=== PATIENT | female | born 1935 | race Caucasian/White ===

== ENCOUNTER 2017-07-11 11:38 | Emergency (ER) | payer MEDICARE, OTHER ==
[2017-07-11 12:21] LABS: HEMATOCRIT 39.6 % (35.0-47.0); HEMOGLOBIN 13.7 gm/dl (11.6-16.0); MEAN CELL VOLUME 87.2 fl (81-97); MEAN CORPUSCULAR HEMOGLOBIN 30.2 pg (27-33); MEAN CORPUSCULAR HGB CONC 34.6 g/dl (32-36); MEAN PLATELET VOLUME 10.8 fl (7.4-10.4); PLATELET COUNT 206 K/uL (130-400); RED BLOOD COUNT 4.54 M/uL (3.80-5.40); WHITE BLOOD COUNT W/O DIFF 7.9 K/uL (4.2-12.2)
[2017-07-11 12:29] LABS: PLATELET ESTIMATE NORMAL (NORMAL)
--- NOTE | 2017-07-11 12:31 | Emergency Department Record ---
History of Present Illness - General Chief Complaint: Fall Injury Stated Complaint: FELL RT SHOULDER & NOSE INJURY Time Seen by Provider: 07/11/17 12:03 Source: Patient Mode of Arrival: Ambulatory Limitations: No limitations - History of Present Illness Initial Comments: pt slipped in the bathroom and hit her face in the shower track and injured her r shoulder and r elbow. she lacerated her nose. she had no loc. she is on jihan JUSTICE Complaint: Fall -: Minutes(s) Fall From: Standing When Fall Occurred: Just prior to arrival Fall Witnessed: No Place Fall Occurred: Home Loss of Consciousness: None Prolonged Down Time?: No Symptoms Prior to Fall: None Location: Face Location - Extremities: Right: Shoulder, Elbow Severity: Mild Quality: Aching - Long Bottom Coma Scale Eye Response: (4) Open spontaneously Motor Response: (6) Obeys commands Verbal Response: (5) Oriented Tara Total: 15 - Related Data Home Medications Medication Instructions Recorded Confirmed Last Taken Insulin Glargine,Hum.rec.anlog 12 unit SQ QHS 07/11/17 07/11/17 07/10/17 [Lantus] Linagliptin [Tradjenta] 5 mg PO DAILY 07/11/17 07/11/17 Unknown Allergies Allergy/AdvReac Type Severity Reaction Status Date / Time Penicillins Allergy HIVES Verified 07/11/17 11:53 Review of Systems Reviewed: No additional complaints except as noted below Constitutional: Reports: As per HPI. Denies: Chills, Fever, Malaise, Night sweats, Weakness, Weight change Eyes: Reports: As per HPI. Denies: Eye discharge, Eye pain, Photophobia, Vision change ENT: Reports: As per HPI. Denies: Congestion, Dental pain, Ear pain, Epistaxis , Hearing loss, Throat pain Respiratory: Reports: As per HPI. Denies: Cough, Dyspnea, Hemoptysis, Stridor, Wheezes Cardiovascular: Reports: As per HPI. Denies: Arrhythmia, Chest pain, Dyspnea on exertion, Edema, Murmurs, Orthopnea, Palpitations, Paroxysmal nocturnal dyspnea, Rheumatic Fever, Syncope Endocrine: Reports: As per HPI. Denies: Fatigue, Heat or cold intolerance, Polydipsia, Polyuria Gastrointestinal: Reports: As per HPI. Denies: Abdominal pain, Constipation, Diarrhea, Hematemesis, Hematochezia, Melena, Nausea, Vomiting Genitourinary: Reports: As per HPI. Denies: Abnormal menses, Discharge, Dyspareunia, Dysuria, Frequency, Hematuria, Incontinence, Retention, Urgency Musculoskeletal: Reports: As per HPI. Denies: Arthralgia, Back pain, Gout, Joint swelling, Myalgia, Neck pain Skin: Reports: As per HPI. Denies: Bruising, Change in color, Change in hair/ nails, Lesions, Pruritus, Rash Neurological: Reports: As per HPI. Denies: Abnormal gait, Confusion, Headache, Numbness, Paresthesias, Seizure, Tingling, Tremors, Vertigo, Weakness Psychiatric: Reports: As per HPI. Denies: Anxiety, Auditory hallucinations, Depression, Homicidal thoughts, Suicidal thoughts, Visual hallucinations Hematological/Lymphatic: Reports: As per HPI. Denies: Anemia, Blood Clots, Easy bleeding, Easy bruising, Swollen glands Past Medical History - SOCIAL HISTORY Smoking Status: Never smoker Alcohol Use: None Drug Use: None - RESPIRATORY Hx Respiratory Disorders: No - CARDIOVASCULAR Hx Cardio Disorders: Yes Hx Hypertension: Yes Hx Pacemaker/Defib: Yes Comment:: high cholesterol - NEURO Hx Neuro Disorders: Yes Hx Neuropathy: Yes - GI Hx GI Disorders: No - Hx Genitourinary Disorders: No - ENDOCRINE Hx Endocrine Disorders: Yes Hx Diabetes: Yes Hx Thyroid Disease: Yes - MUSCULOSKELETAL Hx Musculoskeletal Disorders: Yes Hx Gout: Yes - PSYCH Hx Psych Problems: No - HEMATOLOGY/ONCOLOGY Hx Hematology/Oncology Disorders: Yes Hx Cancer: Yes (skin basal cell) Family Medical History Any Significant Family History?: No Physical Exam - General General Appearance: Alert, Oriented x3, Cooperative, Mild distress - Head Head exam: Normal inspection Head exam detail: Contusion, Laceration Image of Face/Head: 1 - laceration w tenderness 2 - swelling and ecchymosis - Eye Eye exam: Normal appearance, PERRL, EOMI Pupils: Normal accommodation - ENT ENT exam: Normal exam, Mucous membranes moist, Normal external ear exam, Normal orophraynx Ear exam: Normal external inspection. negative: External canal tenderness Nasal Exam: Normal inspection, Dried blood. negative: Discharge, Sinus tenderness Mouth exam: Normal external inspection, Tongue normal Teeth exam: Normal inspection. negative: Dental caries Throat exam: Normal inspection. negative: Tonsillar erythema, Tonsillar exudate - Neck Neck exam: Normal inspection, Full ROM. negative: Tenderness - Respiratory Respiratory exam: Normal lung sounds bilaterally. negative: Respiratory distress - Cardiovascular Cardiovascular Exam: Regular rate, Normal rhythm, Normal heart sounds - GI/Abdominal GI/Abdominal exam: Soft, Normal bowel sounds. negative: Tenderness - Rectal Rectal exam: Deferred - exam: Deferred - Extremities Extremities exam: Normal capillary refill, Tenderness. negative: Full ROM Image of Full Body: 1 - tender 2 - tender 3 - detail above - Back Back exam: Reports: Normal inspection, Full ROM. Denies: Muscle spasm, Rash noted, Tenderness - Neurological Neurological exam: Alert, CN II-XII intact, Normal gait, Oriented X3 - Psychiatric Psychiatric exam: Normal affect, Normal mood - Skin Skin exam: Dry, Intact, Normal color, Warm Medical Decision Making - Lab Data Result diagrams: 07/11/17 12:00 Lab Results 07/11/17 Range/Units 12:00 WBC 7.9 (4.2-12.2) K/uL RBC 4.54 (3.80-5.40) M/uL Hgb 13.7 (11.6-16.0) gm/dl Hct 39.6 (35.0-47.0) % MCV 87.2 (81-97) fl MCH 30.2 (27-33) pg MCHC 34.6 (32-36) g/dl RDW 13.0 (11.5-14.5) % Plt Count 206 (130-400) K/uL MPV 10.8 H (7.4-10.4) fl Eosinophils % Not Reportable Basophils % Not Reportable Disposition Disposition: Discharge Clinical Impression: Multiple contusions Laceration of nose Qualifiers: Encounter type: initial encounter Qualified Code(s): S01.21XA - Laceration without foreign body of nose, initial encounter Right shoulder strain Qualifiers: Encounter type: initial encounter Qualified Code(s): S46.911A - Strain of unspecified muscle, fascia and tendon at shoulder and upper arm level, right arm , initial encounter Head injury Qualifiers: Encounter type: initial encounter Qualified Code(s): S09.90XA - Unspecified injury of head, initial encounter Disposition: Home, Self-Care Condition: (1) Good Instructions: Care For Your Stitches (ED), Fall Prevention for Older Adults (ED ), Head Injury (ED), Shoulder Sprain (ED), Nasal Contusion (ED), Facial Contusion (ED) Additional Instructions: follow up with family doctor. return sooner if worse. ice to nose. stitches out in 7 days Forms: Patient Portal Access Quality - Quality Measures Quality Measures: N/A - Blood Pressure Screening Does Patient Have Any of the Following: No Blood Pressure Classification: Pre-Hypertensive BP Reading Systolic Measurement: 125 Diastolic Measurement: 89 Screening for High Blood Pressure: < Pre-Hypertensive BP, F/U Documented > [ G8950] Pre-Hypertensive Follow-up Interventions: Follow-up with rescreen every year. Laceration - Head - Time Out Informed consent:: Informed consent obtained Confirmed first & last name, , procedure, correct site?: Yes - Location Location of laceration:: Medial Laceration located on:: Nose Length of laceration:: 2 Length of laceration:: cm - Clean and Prep Laceration cleaning method:: Cleansed Laceration cleaning agent:: Normal Saline - Topical Anesthetic Lidocaine dose:: 1 mL Lidocaine used:: 1% - Medication Medicated for procedure?: No - Procedural Detail Tissue detail:: None Undermining was preformed?: No Stent applied?: No Elo applied?: No (4 simple interupted sutures w 6.0 ethilon) Retention suture(s) applied?: No
--- NOTE | 2017-07-13 06:00 | CT SCAN REPORT ---
DATE: 07/11/2017 at 1302. EXAM: CT OF THE HEAD WITHOUT CONTRAST. HISTORY: Fell and hit nose and right shoulder. Patient on anticoagulation therapy. TECHNIQUE: Routine noncontrast CT examination of the head is performed. COMPARISON: None. FINDINGS: There is mild dilatation of the subarachnoid spaces consistent with generalized atrophy. The ventricles are not enlarged. Mild periventricular and subcortical white matter lucencies are scattered in each cerebral hemisphere. These are nonspecific but likely areas of chronic small-vessel ischemia. No other area of abnormally increased or decreased attenuation is noted throughout the brain substance. No abnormal extra-axial fluid collection is seen. No skull fracture is identified. The visualized paranasal sinuses and mastoid air cells are clear. Postcataract surgery changes are noted bilaterally. The orbits as visualized are otherwise unremarkable. No cephalohematoma visualized. IMPRESSION: 1. NO CT EVIDENCE OF AN ACUTE INTRACRANIAL ABNORMALITY NOR SKULL FRACTURE. 2. GENERALIZED ATROPHY. 3. MILD WHITE MATTER LUCENCIES IN EACH CEREBRAL HEMISPHERE ARE NONSPECIFIC BUT LIKELY AREAS OF CHRONIC SMALL-VESSEL ISCHEMIA. JOB NUMBER: [id number] [facility]
--- NOTE | 2017-07-13 06:03 | RADIOLOGY REPORT ---
DATE: 07/11/2017 at 1327. EXAM: RIGHT ELBOW, COMPLETE. HISTORY: Pain post fall. TECHNIQUE: Four views of the right elbow. COMPARISON: None. ENCOUNTER: Initial. FINDINGS: There is normal bone mineralization. No fracture, dislocation, or destructive bone lesion is seen. There are mild degenerative changes of the medial compartment. Mild soft tissue swelling is noted in the posteromedial forearm. No anterior nor posterior fat pad sign is seen. IMPRESSION: 1. NO ACUTE FRACTURE NOR DISLOCATION. 2. MILD DEGENERATIVE CHANGES OF THE MEDIAL COMPARTMENT. 3. MILD SOFT TISSUE SWELLING. JOB NUMBER: [id number] [facility]
--- NOTE | 2017-07-13 06:10 | CT SCAN REPORT ---
DATE: 07/11/2017 at 1305. EXAM: CT OF THE FACIAL BONES WITHOUT CONTRAST. HISTORY: Fall with trauma to right shoulder and nose. Nasal laceration. TECHNIQUE: Thin-collimation helical CT examination of the facial bones is performed in the axial plane without intravenous contrast. Coronal and sagittal reformatted images are generated and reviewed. FINDINGS: There is normal bone mineralization. No acute facial bone fracture is demonstrated. There is some mild soft tissue swelling at the level of the nasal bridge, slightly asymmetric to the right. Mild right infraorbital soft tissue swelling is also noted. The paranasal sinuses are well developed and well aerated. Postcataract surgery changes are noted bilaterally. The ocular globes are intact. The retrobulbar fat is clear. The optic nerves and extraocular muscles are symmetric and normal in appearance. The nasopharynx and oropharynx are unremarkable. The visualized submandibular glands and parotid glands are normal in appearance. IMPRESSION: 1. NO CT EVIDENCE OF ACUTE FACIAL BONE FRACTURE. 2. MILD SOFT TISSUE SWELLING INVOLVING THE NOSE ASYMMETRIC TO THE RIGHT WELL IN THE RIGHT INFRAORBITAL SOFT TISSUES. JOB [facility]BER: [id number] [facility]
--- NOTE | 2017-07-13 06:24 | CT SCAN REPORT ---
DATE: 07/11/2017 at 1258. EXAM: CT OF THE CERVICAL SPINE WITHOUT CONTRAST. HISTORY: Fell today and hit nose and right shoulder. TECHNIQUE: Thin-collimation helical CT examination of the cervical spine is performed in the axial plane without intravenous contrast. Coronal and sagittal reformatted images are generated and reviewed. COMPARISON: None. FINDINGS: There is diffuse osteopenia mildly limiting evaluation. There is straightening of the normal cervical lordosis with slight reversal at the C5-C6 level. There is minimal anterolisthesis of C2 on C3, C3 on C4, and C4 on C5 as well as minimal anterolisthesis of C7 on T1. The vertebral bodies are otherwise normal in alignment and height. No acute fracture, destructive bone lesion, or prevertebral soft tissue swelling is seen. Moderate hypertrophic degenerative changes of the atlantodental joint are present. Multilevel degenerative disc/degenerative endplate changes are present, most pronounced at the C5-C6 and C6-C7 levels where they are moderate in degree. There is a small area of lucency in the inferior aspect of the C6 vertebral body. This measures 4.0 mm in diameter. It is nonspecific, though likely an area of focal marrow fat rather than a true lytic lesion. A chronic-appearing Schmorl's node involves the inferior endplate of C7. There is a small right paracentral disc spur complex superimposed on disc bulging at the C5-C6 level likely causing borderline to mild central canal stenosis. No other central canal stenosis. Multilevel bilateral neuroforaminal narrowing is present, mild in degree secondary to uncovertebral joint and facet joint spurring. Hypertrophic facet degenerative changes are identified most pronounced on the left at the upper levels where the changes are moderate to severe. No cervical mass nor adenopathy is seen. Bi-apical lung scarring is present. IMPRESSION: 1. DIFFUSE OSTEOPENIA LIMITS EVALUATION. 2. NO CONVINCING ACUTE FRACTURE, SUSPICIOUS SUBLUXATION, OR PREVERTEBRAL SOFT TISSUE SWELLING. 3. MULTILEVEL DEGENERATIVE CHANGES, DETAILED ABOVE. MULTILEVEL MINOR ANTEROLISTHESIS LIKELY RELATING TO DEGENERATIVE DISC AND FACET ARTHROPATHY. JOB NUMBER: [id number] [facility]
--- NOTE | 2017-07-13 06:29 | RADIOLOGY REPORT ---
DATE: 07/11/2017 at 1316. EXAM: RIGHT SHOULDER, COMPLETE. HISTORY: Fall with trauma to right shoulder. TECHNIQUE: Three views of the right shoulder. COMPARISON: None. FINDINGS: Diffuse osteopenia limits evaluation. No definite acute osseus fracture nor dislocation is seen. Moderate hypertrophic degenerative changes of the acromioclavicular and glenohumeral joints suggested. Chronic-appearing ossific density projects in the expected region of the superior rotator cuff likely relating to calcific tendinitis. IMPRESSION: 1. DIFFUSE OSTEOPENIA LIMITS EVALUATION. NO CONVINCING ACUTE FRACTURE NOR DISLOCATION. 2. MODERATE DEGENERATIVE CHANGES. 3. WELL-CIRCUMSCRIBED, CHRONIC-APPEARING CALCIFIC DENSITY PROJECTING AT THE EXPECTED LEVEL OF THE SUPERIOR ROTATOR CUFF MEASURING 4.0 X 14 MM. CALCIFIC TENDINITIS IS THE MOST LIKELY ETIOLOGY. JOB NUMBER: [id number] [facility]
== END 2017-07-11 15:34 | disposition home or self-care (01) ==
LOC: ER 11:38
DX: S01.21XA Laceration without foreign body of nose, initial encounter (principal); S00.83XA Contusion of other part of head, initial encounter; S46.911A Strain of unspecified muscle, fascia and tendon at shoulder and upper arm level, right arm, initial encounter; S09.90XA Unspecified injury of head, initial encounter; M25.521 Pain in right elbow; M50.30 Other cervical disc degeneration, unspecified cervical region; E11.9 Type 2 diabetes mellitus without complications; I10 Essential (primary) hypertension; Z79.4 Long term (current) use of insulin; Z79.01 Long term (current) use of anticoagulants; W18.2XXA Fall in (into) shower or empty bathtub, initial encounter; Y93.F1 Activity, caregiving, bathing; Y92.002 Bathroom of unspecified non-institutional (private) residence as the place of occurrence of the external cause
CPT/HCPCS: 12011; 70450; 70486; 72125; 85027; 99284

== ENCOUNTER 2017-07-18 11:40 | Emergency (ER) | payer MEDICARE, OTHER ==
--- NOTE | 2017-07-18 12:02 | Emergency Department Record ---
History of Present Illness - General Chief Complaint: Suture removal Stated Complaint: STITCHES REMOVED Time Seen by Provider: 07/18/17 11:56 Source: Patient Mode of arrival: Ambulatory Limitations: No limitations - History of Present Illness Initial Comments: The patient is doing very well. She is here for suture removal. Complaint: Suture/staple removal Onset/Timin -: Days(s) Initial Visit For: Laceration Returns Today for: Staple/stitch removal Symptoms Since Prior Visit: No new symptoms Associated Symptoms: None - Related Data Allergies Allergy/AdvReac Type Severity Reaction Status Date / Time Penicillins Allergy HIVES Verified 07/11/17 11:53 Travel Screening - Travel/Exposure Within Last 30 Days Have you traveled within the last 30 days?: No - Travel/Exposure Within Last Year Have you traveled outside the [place] in the last year?: No - Additonal Travel Details Have you been exposed to anyone with a communicable illness?: No - Travel Symptoms Symptom Screening: None Past Medical History - SOCIAL HISTORY Smoking Status: Never smoker Alcohol Use: None Drug Use: None - RESPIRATORY Hx Respiratory Disorders: No - CARDIOVASCULAR Hx Cardio Disorders: Yes Hx Hypertension: Yes Hx Pacemaker/Defib: Yes Comment:: high cholesterol - NEURO Hx Neuro Disorders: Yes Hx Neuropathy: Yes - GI Hx GI Disorders: No - Hx Genitourinary Disorders: No - ENDOCRINE Hx Endocrine Disorders: Yes Hx Diabetes: Yes Hx Thyroid Disease: Yes - MUSCULOSKELETAL Hx Musculoskeletal Disorders: Yes Hx Gout: Yes - PSYCH Hx Psych Problems: No - HEMATOLOGY/ONCOLOGY Hx Hematology/Oncology Disorders: Yes Hx Cancer: Yes (skin basal cell) Family Medical History Any Significant Family History?: No Physical Exam - General General Appearance: Alert, Cooperative, No acute distress - Head Head exam: Atraumatic, Normocephalic - Eye Eye exam: Normal appearance, PERRL - ENT ENT exam: Normal exam (The sutures were removed with no difficulty.) Course Vital Signs 07/18/17 11:47 Temperature 97.9 F Pulse Rate 76 Respiratory 16 Rate Blood Pressure 194/89 Pulse Ox 98 Disposition Disposition: Discharge Clinical Impression: Visit for suture removal Disposition: Home, Self-Care Condition: (2) Stable Instructions: Stitches Removal (ED) Additional Instructions: Return to the ER for any problems. Forms: Patient Portal Access Time of Disposition: 12:02 Quality - Quality Measures Quality Measures: N/A - Blood Pressure Screening View Details: Yes Does Patient Have Any of the Following: No Blood Pressure Classification: Pre-Hypertensive BP Reading Systolic Measurement: 194 Diastolic Measurement: 89 Screening for High Blood Pressure: < Pre-Hypertensive BP, F/U Documented > [ G8950] Pre-Hypertensive Follow-up Interventions: Referral to alternative/primary care provider.
== END 2017-07-18 12:09 | disposition home or self-care (01) ==
LOC: ER 11:40
DX: Z48.02 Encounter for removal of sutures (principal)

== ENCOUNTER 2019-09-18 09:36 | Observation (INO) | payer MEDICARE, OTHER ==
[2019-09-18 10:09] LABS: BASO % 0.1 % (0-6); EOS % 1.9 % (0-6); HEMATOCRIT 30.8 % (35.0-47.0); HEMOGLOBIN 9.5 gm/dl (11.6-16.0); LYMPH % 6.1 % (16-45); MEAN CELL VOLUME 96.3 fl (81-97); MEAN CORPUSCULAR HGB CONC 30.8 g/dl (32-36); MONO % 6.3 % (0-9); PLATELET COUNT 202 K/uL (130-400); RED CELL DISTRIBUTION WIDTH 13.6 % (11.5-14.5); WHITE BLOOD COUNT W/O DIFF 6.7 K/uL (4.2-12.2)
--- NOTE | 2019-09-18 10:09 | Emergency Department Record ---
History of Present Illness - General Chief Complaint: Chest Pain Stated Complaint: CHEST PAIN Time Seen by Provider: 09/18/19 09:46 Source: Patient Mode of Arrival: Ambulatory Limitations: No limitations - History of Present Illness Initial Comments: The patient is here due to a 3 day hx of CURTIS and palpitations after walking and exerting herself. She denies any Cp, pressure or any chest discomfort with the palpitations. She also has had mild leg swelling recently. The patient does have a cardiac hx and did have 2 stents placed about 9 months ago at [facility]. She also does have a pacemaker. MD Complaint: Other Onset/Timin -: Days(s) Onset: During exertion Consistency: Intermittent Worsens With: Exertion, Movement Treatments Prior to Arrival: None - Related Data Home Medications Medication Instructions Recorded Confirmed Last Taken Amlodipine Besylate [Norvasc] 10 mg PO DAILY 09/18/19 09/18/19 Unknown Atorvastatin Calcium [Lipitor] 40 mg PO DAILY 09/18/19 09/18/19 Unknown Carvedilol 25 mg PO DAILY 09/18/19 09/18/19 Unknown Cholecalciferol (Vitamin D3) 25 mcg PO DAILY 09/18/19 09/18/19 Unknown [Vitamin D3] Clopidogrel Bisulfate [Clopidogrel] 75 mg PO DAILY 09/18/19 09/18/19 Unknown Warfarin Sodium 2 mg PO DAILY 09/18/19 09/18/19 Unknown Warfarin Sodium [Coumadin] 1 mg PO DAILY 09/18/19 09/18/19 Unknown Allergies Allergy/AdvReac Type Severity Reaction Status Date / Time Penicillins Allergy HIVES Verified 07/11/17 11:53 Travel Screening - Travel/Exposure Within Last 30 Days Have you traveled within the last 30 days?: No Review of Systems Constitutional: Denies: Chills, Fever Eyes: Denies: Eye discharge ENT: Denies: Congestion Respiratory: Denies: Cough, Dyspnea Cardiovascular: Reports: Dyspnea on exertion. Denies: Chest pain Endocrine: Denies: Fatigue Gastrointestinal: Denies: Nausea Genitourinary: Denies: Dysuria Musculoskeletal: Denies: Arthralgia Past Medical History - SOCIAL HISTORY Smoking Status: Never smoker Alcohol Use: None Drug Use: None - RESPIRATORY Hx Respiratory Disorders: No - CARDIOVASCULAR Hx Cardio Disorders: Yes Hx Hypertension: Yes Hx Pacemaker/Defib: Yes Comment:: high cholesterol - NEURO Hx Neuro Disorders: Yes Hx Neuropathy: Yes - GI Hx GI Disorders: No - Hx Genitourinary Disorders: No - ENDOCRINE Hx Endocrine Disorders: Yes Hx Diabetes: Yes Hx Thyroid Disease: Yes - MUSCULOSKELETAL Hx Musculoskeletal Disorders: Yes Hx Gout: Yes - PSYCH Hx Psych Problems: No - HEMATOLOGY/ONCOLOGY Hx Hematology/Oncology Disorders: Yes Hx Cancer: Yes (skin basal cell) Hx Chemotherapy: No Hx Radiation Therapy: No Family Medical History Any Significant Family History?: No Physical Exam - General General Appearance: Alert, Oriented x3, Cooperative, No acute distress - Head Head exam: Atraumatic, Normocephalic, Normal inspection - Eye Eye exam: Normal appearance, PERRL - ENT Throat exam: Normal inspection. negative: Tonsillar erythema, Tonsillar exudate - Neck Neck exam: Normal inspection, Full ROM. negative: Tenderness - Respiratory Respiratory exam: Normal lung sounds bilaterally. negative: Respiratory distress - Cardiovascular Cardiovascular Exam: Regular rate, Normal rhythm, Normal heart sounds - GI/Abdominal GI/Abdominal exam: Soft, Normal bowel sounds. negative: Tenderness - Extremities Extremities exam: Normal inspection, Pedal edema (1+ bilaterally.) - Neurological Neurological exam: Alert. negative: Motor sensory deficit - Skin Skin exam: negative: Rash Course Vital Signs 09/18/19 09:37 Pulse Rate 81 Respiratory 20 Rate Blood Pressure 193/75 Pulse Ox 97 - Reevaluation(s) Reevaluation #1: The patient is doing OK at this time and denies any CP or SOB. Her O2 sats are running in the low 90's and she has not urinated yet from her IV Lasix. I did discuss the fact that the patient appears to be in mild to mod CHF and do believe she will need a short stay admission for diuresis. I then did discuss the case with Louise and she does accept the admission for Dr. Hilton. 09/18/19 11:22 Medical Decision Making - Data Complexity MDM Data: Labs Ordered and/or Reviewed, X-Ray Ordered and/or Reviewed, EKG Ordered and/or Reviewed - Lab Data Result diagrams: 09/18/19 09:50 09/18/19 09:50 - EKG Data -: EKG Interpreted by Me EKG: No Acute Changes (Neg for ischemia.) - Radiology Data Radiology results: Report reviewed (CXR: Mild to Mod CHF) Disposition Disposition: Admit Clinical Impression: CHF (congestive heart failure) Qualifiers: Heart failure type: unspecified Heart failure chronicity: unspecified Qualified Code(s): I50.9 - Heart failure, unspecified Disposition: Still a Patient at [facility] Decision to Admit: Admit from ER Decision to Admit Date: 09/18/19 Decision to Admit Time: 11:24 Accepting Physician: Lida Time Discussed w/Accepting Physician: 11:24 Condition: (2) Stable Forms: Patient Portal Access Time of Disposition: 11:24 Quality - Quality Measures Quality Measures: N/A - Blood Pressure Screening View Details: Yes Does Patient Have Any of the Following: Active Dx of HTN Blood Pressure Classification: Hypertensive Reading Systolic Measurement: 193 Diastolic Measurement: 75 Screening for High Blood Pressure: Patient Exclusion, Hx of HTN [G9744]
[2019-09-18 10:16] LABS: MEAN CORPUSCULAR HEMOGLOBIN 29.6 pg (27-33)
[2019-09-18 10:19] LABS: BLOOD UREA NITROGEN 19 mg/dL (8-23); CREATININE 1.2 mg/dL (0.5-0.9); EST GLOMERULAR FILTRATION RATE 45 mL/min
[2019-09-18 10:20] LABS: TOTAL PROTEIN 6.9 g/dL (6.6-8.7)
[2019-09-18 10:22] LABS: GLUCOSE,RANDOM 300 mg/dL (74-109); INR 2.2; PARTIAL THROMBOPLASTIN TIME 43.3 SECONDS (24.5-39.1); PROTHROMBIN TIME (PATIENT) 22.1 SECONDS (9.5-12.1)
[2019-09-18 10:24] LABS: ALT/SGPT 12 U/L (<33); AST/SGOT 15 U/L (10.0-35.0)
[2019-09-18 10:25] LABS: ALB/GLOB RATIO 1.5 (1.1-1.8); ALBUMIN 4.1 g/dL (4.0-5.0); ALKALINE PHOSPHATASE 76 U/L (35-104)
[2019-09-18 10:34] LABS: ANISOCYTOSIS 1+; PLATELET ESTIMATE NORMAL (NORMAL)
[2019-09-18] MEDS ORDERED: FUROSEMIDE IV 40MG/4ML VIAL IVP ONE (10:37)
--- NOTE | 2019-09-18 11:06 | RADIOLOGY REPORT ---
EXAMINATION: Two View Chest Radiographs EXAM DATE: 09/18/2019 10:38 AM TECHNIQUE: Frontal and lateral views INDICATION: M[place] COMPARISON: None ENCOUNTER: Not applicable FINDINGS: PA and lateral views of the chest show increased interstitial opacities throughout both lungs which a re nonspecific. There is a small right pleural effusion. The cardiac silhouette appears within normal limits. There is no focal lung consolidation or pneumothorax. A left-sided cardiac pacemaker is in p lace. IMPRESSION: 1. Increased interstitial opacities throughout both lungs, nonspecific with considerations including chronic interstitial lung disease and acute processes such as interstitial edema and atypical pneumon ia. 2. Small right pleural effusion. Dictated by: Emory Lau MD on 09/18/2019 11:04 AM. .
--- NOTE | 2019-09-18 13:08 | History & Physical ---
History of Present Illness - Date of Service Date of Service for History & Physical: 09/18/19 - History of Present Illness Admitting Diagnosis: CHF. Dyspnea on exertion History of Present Illness: 83 year old female patient presented to ED for evaluation of shortness of breath. Patient has noted increasing dyspnea on exertion since Wednesday night. Denies chest pain or palpitations with exertion. Has also noted increased bilateral lower extremity swelling. Patient reports being on lasix daily, however, after talking with the pharmacy, patient last filled the prescription in April. Patient denies fever, cough, chills, or urinary symptoms. 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 Patient had cardiac stents placed in January, with an ECHO and stress completed at that time with no abnormalities. Patient is also on coumadin for a-fib. Medical history also significant for insulin dependent diabetes, HTN, and PPM. PCP: Dr. Morales ED Course: CXR: chronic interstitial lung disease with possible interstitial edema and atypical pneumonia; small right pleural effusion EKG: sinus rhythm, rate 79 BNP 1364 Troponin <0.010 CBC, CMP unremarkable INR 2.2 09/18/19: Patient A&O x 4, sitting up on edge of bed. No respiratory distress noted, no concerns at this time. Will continue with gentle diuresis with Lasix. Travel Screening - Travel/Exposure Within Last 30 Days Have you traveled within the last 30 days?: No - Travel/Exposure Within Last Year Have you traveled outside the [place] in the last year?: No - Additonal Travel Details Have you been exposed to anyone with a communicable illness?: No - Travel Symptoms Symptom Screening: None Review of Systems Reviewed: No additional complaints except as noted below Constitutional: Denies: Chills, Fever Eyes: Denies: Eye discharge ENT: Denies: Congestion Respiratory: Denies: Cough, Dyspnea Cardiovascular: Reports: Dyspnea on exertion, Edema (BLE). Denies: Chest pain Endocrine: Denies: Fatigue Gastrointestinal: Denies: Nausea Genitourinary: Denies: Dysuria Musculoskeletal: Denies: Arthralgia Past Medical History - SOCIAL HISTORY Smoking Status: Never smoker Alcohol Use: None Drug Use: None - RESPIRATORY Hx Respiratory Disorders: No - CARDIOVASCULAR Hx Cardio Disorders: Yes Hx Hypertension: Yes Hx Pacemaker/Defib: Yes Comment:: high cholesterol - NEURO Hx Neuro Disorders: Yes Hx Neuropathy: Yes - GI Hx GI Disorders: No - Hx Genitourinary Disorders: No - ENDOCRINE Hx Endocrine Disorders: Yes Hx Diabetes: Yes Hx Thyroid Disease: Yes - MUSCULOSKELETAL Hx Musculoskeletal Disorders: Yes Hx Gout: Yes - PSYCH Hx Psych Problems: No - HEMATOLOGY/ONCOLOGY Hx Hematology/Oncology Disorders: Yes Hx Cancer: Yes (skin basal cell) Hx Chemotherapy: No Hx Radiation Therapy: No Family Medical History Any Significant Family History?: No H&P Meds/Allergies - Allergies Allergies: Allergies Allergy/AdvReac Type Severity Reaction Status Date / Time Penicillins Allergy HIVES Verified 07/11/17 11:53 - Home Medications Home Medications Medication Instructions Recorded Confirmed Last Taken Amlodipine Besylate [Norvasc] 10 mg PO DAILY 09/18/19 09/18/19 Unknown Atorvastatin Calcium [Lipitor] 40 mg PO DAILY 09/18/19 09/18/19 Unknown Carvedilol 25 mg PO DAILY 09/18/19 09/18/19 Unknown Cholecalciferol (Vitamin D3) 25 mcg PO DAILY 09/18/19 09/18/19 Unknown [Vitamin D3] Clopidogrel Bisulfate [Clopidogrel] 75 mg PO DAILY 09/18/19 09/18/19 Unknown Furosemide [Lasix] 20 tab PO DAILY 09/18/19 09/18/19 Unknown Insulin Degludec [Tresiba 36 unit SQ QHS 09/18/19 09/18/19 Unknown Flextouch U-100] Irbesartan [Avapro] 300 mg PO DAILY 09/18/19 09/18/19 09/18/19 300mg Warfarin Sodium 2 mg PO DAILY 09/18/19 09/18/19 Unknown Warfarin Sodium [Coumadin] 1 mg PO DAILY 09/18/19 09/18/19 Unknown Physical Exam - Vital Signs Vital Signs: Vital Signs - Last 24 Hrs Temp Pulse Pulse Resp BP BP Pulse Ox 09/18/19 10:55 64 20 145/55 93 L 09/18/19 10:07 98.1 F 09/18/19 09:37 81 20 193/75 97 - General General Appearance: Alert, Oriented x3, Cooperative, No acute distress Limitations: No limitations - Head Head exam: Atraumatic, Normocephalic, Normal inspection - Eye Eye exam: Normal appearance, PERRL - ENT ENT exam: Mucous membranes moist Throat exam: Normal inspection. negative: Tonsillar erythema, Tonsillar exudate - Neck Neck exam: Normal inspection, Full ROM. negative: Tenderness - Respiratory Respiratory exam: Normal lung sounds bilaterally. negative: Respiratory distress - Cardiovascular Cardiovascular Exam: Regular rate, Normal rhythm, Normal heart sounds Peripheral Pulses: 2+: Radial (R), Radial (L), Dorsalis Pedis (R), Dorsalis Pedis (L) - GI/Abdominal GI/Abdominal exam: Soft, Normal bowel sounds. negative: Tenderness - Rectal Rectal exam: Deferred - exam: Deferred - Extremities Extremities exam: Normal inspection, Pedal edema (1+ bilaterally.) - Neurological Neurological exam: Alert, Normal gait, Oriented X3. negative: Motor sensory deficit - Psychiatric Psychiatric exam: Normal affect, Normal mood - Skin Skin exam: negative: Rash Type of lesion: abrasion (multiple abrasions to BLE; chronic skin changes) Results - Labs Result Diagrams: 09/18/19 09:50 09/18/19 09:50 Labs Last 24 Hours: Laboratory Results - last 24 hr 09/18/19 09/18/19 09/18/19 09:50 09:50 09:50 WBC 6.7 RBC 3.20 L Hgb 9.5 L Hct 30.8 L MCV 96.3 MCH 29.6 MCHC 30.8 L RDW 13.6 Plt Count 202 MPV 10.0 Neutrophils % 86.0 H Band Neutrophils % 3.0 Lymphocytes % 6.1 L Monocytes % 6.3 Eosinophils % 1.9 Basophils % 0.1 Absolute Neutrophils 5.70 Lymphocytes 4.0 L Monocytes 6.0 Platelet Estimate Normal Anisocytosis 1+ Eosinophil Count 1.0 PT 22.1 H INR 2.2 APTT 43.3 H Sodium 139 Potassium 4.6 H Chloride 102 Carbon Dioxide 22.0 Anion Gap 15.0 BUN 19 Creatinine 1.2 H Estimated GFR 45 Random Glucose 300 H Calcium 9.1 Total Bilirubin 1.10 H AST 15 ALT 12 Alkaline Phosphatase 76 Troponin T < 0.010 NT-Pro-B Natriuret Pep 1364.00 H Total Protein 6.9 Albumin 4.1 Globulin 2.8 Albumin/Globulin Ratio 1.5 - Imaging and Cardiology Chest x-ray Status: Report reviewed VTE H&P Assessment - Risk for VTE Risk for VTE: Yes Risk Level: Moderate Risk Assessment Date: 09/18/19 Risk Assessment Time: 14:00 VTE Orders Placed or Will Be Placed: No VTE Reason for No Prophylaxis: Not Indicated (therapeutic on coumadin, continue) Plan - Detailed Diagnosis and Plan (1) CHF (congestive heart failure) Current Visit: Yes Status: Acute Qualifiers: Heart failure type: unspecified Heart failure chronicity: unspecified Qualified Code(s): I50.9 - Heart failure, unspecified Base Code: I50.9 - HEART FAILURE, UNSPECIFIED Comment: 09/18/19 - Dyspnea on exertion x 3 days - Afebrile, denies cough, fatigue, or systemic symptoms - BNP 1364 - Patient prescribed Lasix 20mg daily and believed she was taking it, however pharmacy confirmed patient has not received refill since April 2019 - CXR: interstitial edema - Diuresis with Lasix 20mg IVP BID - Fluid restrictions - Daily weight, I&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[employer]; 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 admission, will fax over last ECHO report (March 2019) (2) Dyspnea on exertion Current Visit: Yes Status: Acute Base Code: R06.09 - OTHER FORMS OF DYSPNEA Comment: 09/18/19 - Mild dyspnea on exertion noted - Likely due to CHF - Supplemental oxygen to keep pulse ox >92% - Diuresis with Lasix - Continue to monitor (3) DVT prophylaxis Current Visit: Yes Status: Acute Base Code: Z29.9 - ENCOUNTER FOR PROPHYLACTIC MEASURES, UNSPECIFIED Comment: 09/18/19 - Moderate risk due to admission and age - Therapeutic on coumadin, INR 2.2 - Continue Coumadin, encourage ambulation within the room (4) Full code status Current Visit: Yes Status: Acute Base Code: Z78.9 - OTHER SPECIFIED HEALTH STATUS Comment: 09/18/19 - Full code this admission
[2019-09-18] MEDS ORDERED: ACETAMINOPHEN 325 MG TAB PO PRN (13:21)
[2019-09-18] MEDS: FUROSEMIDE IV 20MG/2ML VIAL IVP SCH (16:17)
[2019-09-18] MEDS: GABAPENTIN 300 MG CAPSULE PO SCH ×2 (16:18→22:23)
[2019-09-18] MEDS ORDERED: TRESIBA INSULIN SC SCH (22:00)
[2019-09-18] MEDS: METFORMIN 500 MG TABLET PO SCH (22:23)
[2019-09-18] MEDS: CARVEDILOL 12.5 MG TABLET PO SCH (22:23)
[2019-09-19] MEDS ORDERED: LEVOTHYROXINE SODIUM 50 MCG TABLET PO SCH (07:00)
[2019-09-19 07:12] LABS: ABSOLUTE NEUTROPHIL COUNT 3.59; BASO % 0.2 % (0-6); EOS % 2.5 % (0-6); GRAN % 73.6 % (47-80); HEMATOCRIT 27.1 % (35.0-47.0); HEMOGLOBIN 8.4 gm/dl (11.6-16.0); LYMPH % 13.7 % (16-45); MEAN CELL VOLUME 95.1 fl (81-97); MEAN PLATELET VOLUME 10.5 fl (7.4-10.4); PLATELET COUNT 197 K/uL (130-400); RED BLOOD COUNT 2.85 M/uL (3.80-5.40); RED CELL DISTRIBUTION WIDTH 13.3 % (11.5-14.5); WHITE BLOOD COUNT W/O DIFF 4.9 K/uL (4.2-12.2)
[2019-09-19 07:17] LABS: MEAN CORPUSCULAR HEMOGLOBIN 29.4 pg (27-33)
[2019-09-19 07:21] LABS: CREATININE 1.3 mg/dL (0.5-0.9)
[2019-09-19] MEDS: CARVEDILOL 12.5 MG TABLET PO SCH (09:31)
[2019-09-19] MEDS: METFORMIN 500 MG TABLET PO SCH (09:34)
[2019-09-19] MEDS: FUROSEMIDE IV 20MG/2ML VIAL IVP SCH (09:34)
[2019-09-19] MEDS: GABAPENTIN 300 MG CAPSULE PO SCH (09:35)
[2019-09-19] MEDS ORDERED: CHOLECALCIFEROL 1,000 UNIT TABLET PO SCH (10:00)
[2019-09-19] MEDS ORDERED: LOSARTAN POTASSIUM 100 MG TABLET PO SCH (10:00)
[2019-09-19] MEDS ORDERED: ATORVASTATIN 20 MG TABLET PO SCH (10:00)
[2019-09-19] MEDS ORDERED: AMLODIPINE BESYLATE 5MG TAB PO SCH (10:00)
[2019-09-19] MEDS ORDERED: WARFARIN 1 MG TABLET PO SCH ×3 (10:00)
[2019-09-19] MEDS ORDERED: CARVEDILOL 25 MG PO SCH (10:00)
[2019-09-19] MEDS ORDERED: ALLOPURINOL 100 MG TAB PO SCH (10:00)
[2019-09-19] MEDS ORDERED: CLOPIDOGREL 75MG TABLET PO SCH (10:00)
--- NOTE | 2019-09-19 10:18 | Discharge Summary ---
Providers Discharge Summary Date: 09/19/19 Date of admission: 09/18/19 12:55 Expected Date of Discharge: 09/19/19 Attending physician: EVE CRUZ Primary care physician: TIANA JOE M.D. Physical Exam - Vital Signs Vital Signs: Vital Signs - Last 24 Hrs Temp Pulse Pulse Resp BP BP Pulse Ox 09/19/19 08:00 98.3 F 63 16 154/46 91 L 09/19/19 06:00 98.7 F 66 16 127/49 96 09/18/19 21:00 16 09/18/19 20:57 99.4 F 71 16 190/64 97 09/18/19 16:00 98.6 F 73 16 155/83 95 09/18/19 13:00 98.1 F 73 17 160/74 95 09/18/19 10:55 64 20 145/55 93 L - General General Appearance: Alert, Oriented x3, Cooperative, No acute distress Limitations: No limitations - Head Head exam: Atraumatic, Normocephalic, Normal inspection - Eye Eye exam: Normal appearance - Neck Neck exam: Normal inspection, Full ROM. negative: Tenderness - Respiratory Respiratory exam: Normal lung sounds bilaterally. negative: Rales, Respiratory distress, Rhonchi, Wheezes - Cardiovascular Cardiovascular Exam: Regular rate, Normal rhythm, Normal heart sounds Peripheral Pulses: 2+: Dorsalis Pedis (R), Dorsalis Pedis (L) - Rectal Rectal exam: Deferred - exam: Deferred - Extremities Extremities exam: Normal inspection, Pedal edema (1+ pitting LLE, trace RLE) - Neurological Neurological exam: Alert, Normal gait (flat-footed), Oriented X3. negative: Motor sensory deficit - Psychiatric Psychiatric exam: Normal affect, Normal mood - Skin Skin exam: negative: Rash Type of lesion: abrasion (multiple abrasions with scabs to BLE; chronic skin changes ) Hospitalization - Hospitalization Admission Diagnosis: CHF. 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 Patient denies CURTIS with ambulation this AM. - Remains afebrile, denies cough, fatigue, or systemic symptoms - BNP 1364 on admission, no repeat lab work - Patient prescribed Lasix 20mg daily and believed she was taking it, however pharmacy confirmed patient has not received refill since April 2019 - CXR: interstitial edema, no symptoms of infection present - Diuresis with Lasix 20mg IVP BID while in hospital, D/C on PO Lasix as previously prescribed. Six pound weight loss overnight. 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 of admission, will fax over last ECHO report (March 2019) - Echo report reviewed, continue current medication regimen (2) DVT prophylaxis Current Visit: Yes Status: Acute Base Code: Z29.9 - ENCOUNTER FOR PROPHYLACTIC MEASURES, UNSPECIFIED Comment: 09/19/19 - Moderate risk due to admission and age - Therapeutic on coumadin, INR 2.2 - Continue Coumadin, encourage ambulation within the room - Continue home Plavix 75 mg Daily (3) Dyspnea on exertion Current Visit: Yes Status: Acute Base Code: R06.09 - OTHER FORMS OF DYSPNEA Comment: 09/19/19 - Dyspnea on exertion resolved with six pound weight loss overnight related to IVP Lasix - CURTIS Likely due to CHF - Supplemental oxygen not needed - Diuresis with Lasix 20mg IVP BID, D/C with previously prescribed dosing Lasix 20mg Daily po (4) Full code status Current Visit: Yes Status: Acute Base Code: Z78.9 - OTHER SPECIFIED HEALTH STATUS Comment: 09/19/19 - Full code this admission - Hospitalization Course Disposition: Home Health Service Hospital Course: 83 year old female patient presented to ED for evaluation of shortness of cammie ath. Patient has noted increasing dyspnea on exertion since Wednesday night. Denies chest pain or palpitations with exertion. Has also noted increased bilateral lower extremity swelling. Patient reports being on lasix daily, however, after talking with the pharmacy, patient last filled the prescription in April. Patient denies fever, cough, chills, or urinary symptoms. 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 Patient had cardiac stents placed in January, with an ECHO and stress completed at that time with no abnormalities. Patient is also on coumadin for a-fib. Medical history also significant for insulin dependent diabetes, HTN, and PPM. PCP: Dr. Azul ED Course: CXR: chronic interstitial lung disease with possible interstitial edema and atypical pneumonia; small right pleural effusion EKG: sinus rhythm, rate 79 BNP 1364 Troponin <0.010 CBC, CMP unremarkable INR 2.2 09/18/19: Patient A&O x 4, sitting up on edge of bed. No respiratory distress noted, no concerns at this time. Will continue with gentle diuresis with Lasix. 09/19/19: Patient remains stable, in no acute distress resting in bed. Patient able to ambulate without dyspnea on exertion and reports feeling better today. No adventitious lung sounds to indicate infection noted on examination. Six pound weight loss per nursing overnight. No supplemental oxygen use. Will D/C home with PO Lasix. Procedures: Imaging and X-Rays 09/18/19 09:59 CHEST 2 VIEWS [RAD] Stat Cardiology Procedures 09/18/19 09:48 EKG NOW 09/18/19 09:59 Experimental Psychologist NOW 09/18/19 13:21 Experimental Psychologist .Continuous EKG QDX2@0600 Abnormal Labs: Abnormal Lab Results 09/18/19 09/18/19 09/18/19 Range/Units 09:50 09:50 09:50 RBC 3.20 L (3.80-5.40) M/uL Hgb 9.5 L (11.6-16.0) gm/dl Hct 30.8 L (35.0-47.0) % MCHC 30.8 L (32-36) g/dl MPV (7.4-10.4) fl Neutrophils % 86.0 H (47-80) % Lymphocytes % 6.1 L (16-45) % Monocytes % (0-9) % Lymphocytes 4.0 L (16-45) % PT 22.1 H (9.5-12.1) SECONDS APTT 43.3 H (24.5-39.1) SECONDS Potassium 4.6 H (3.4-4.5) mmol/L Creatinine 1.2 H (0.5-0.9) mg/dL POC Glucose (70-110) mg/dL Random Glucose 300 H (74-109) mg/dL Total Bilirubin 1.10 H (0.2-1.0) mg/dL NT-Pro-B Natriuret Pep 1364.00 H (<450) pg/mL 09/18/19 09/19/19 09/19/19 Range/Units 22:20 06:20 06:20 RBC 2.85 L (3.80-5.40) M/uL Hgb 8.4 L (11.6-16.0) gm/dl Hct 27.1 L (35.0-47.0) % MCHC 31.0 L (32-36) g/dl MPV 10.5 H (7.4-10.4) fl Neutrophils % (47-80) % Lymphocytes % 13.7 L (16-45) % Monocytes % 10.0 H (0-9) % Lymphocytes (16-45) % PT (9.5-12.1) SECONDS APTT (24.5-39.1) SECONDS Potassium (3.4-4.5) mmol/L Creatinine 1.3 H (0.5-0.9) mg/dL POC Glucose 211 H (70-110) mg/dL Random Glucose (74-109) mg/dL Total Bilirubin (0.2-1.0) mg/dL NT-Pro-B Natriuret Pep (<450) pg/mL Condition at Discharge: (2) Stable VTE Discharge VTE Reason For No Overlap Therapy: Not Indicated (Patient currently on Coumadin and Plavix) Discharge Medications - Discharge Medications Prescriptions: RX: Furosemide [Lasix] 20 tab PO DAILY 30 Days #30 Home Medications: Ambulatory Orders Allopurinol 100 mg PO DAILY 01/22/15 [Last Taken 07/11/17] Gabapentin 300 mg PO QID 01/22/15 [Last Taken 07/11/17] Levothyroxine Sodium [Synthroid] 50 mcg PO DAILY 01/22/15 [Last Taken 07/11/17] Metformin HCl 1,000 mg PO BID 01/22/15 [Last Taken 07/11/17] Amlodipine Besylate [Norvasc] 10 mg PO DAILY 09/18/19 [Last Taken Unknown] Atorvastatin Calcium [Lipitor] 40 mg PO DAILY 09/18/19 [Last Taken Unknown] Cholecalciferol (Vitamin D3) [Vitamin D3] 25 mcg PO DAILY 09/18/19 [Last Taken Unknown] Clopidogrel Bisulfate [Clopidogrel] 75 mg PO DAILY 09/18/19 [Last Taken Unknown] Insulin Degludec [Tresiba Flextouch U-100] 36 unit SQ QHS 09/18/19 [Last Taken Unknown] Irbesartan [Avapro] 300 mg PO DAILY 09/18/19 [Last Taken 09/18/19 300 mg] Warfarin Sodium 2 mg PO DAILY 09/18/19 [Last Taken Unknown] Warfarin Sodium [Coumadin] 1 mg PO DAILY 09/18/19 [Last Taken Unknown] Carvedilol [Coreg] 25 mg PO BID tablet 09/19/19 [Last Taken Unknown] Furosemide [Lasix] 20 tab PO DAILY 30 Days #30 09/19/19 [Last Taken Unknown] Discharge Plan - Discharge Instructions Activity at Discharge: Increase Activity as Tolerated Diet at Discharge: Advance to Usual Diet Instructions: Heart Failure (DC) Additional Instructions: Activity: Increase Activity as Tolerated Diet: Advance to Usual Diet Consults: [] Follow Up: []WITH DR AZUL IN ONE WEEK Dressing/Wound Care: (Type) (Change) Additional: [] Please schedule a one week hospital follow up with Dr. Joe. Home health to come in and help with medication set-up. New medication: Lasix 20mg Daily to begin tomorrow, Wednesday09/20/2019. Call PCP if weight gain > 5 pounds in a week Present to ER for increased difficulty breathing, increased shortness of breath, significant weight gain or significant swelling in ankles/legs Quality Measures - Quality Measures Quality Measures: Advance Directives, Documentation of Current Medications in Medical Record, Elder Maltreatment Screen and Follow-Up Plan, Heart Failure, Screening for High Blood Pressure and F/U Documented - Current Medications Quality Measure: Measure #130: Documentation of Current Medications Documentation of Current Medications: <Current Medications Documented/Reviewed> [G1737] - Blood Pressure Screening Quality Measure: Screening for High Blood Pressure and Follow-Up Documented Does Patient Have Any of the Following: Active Dx of HTN Blood Pressure Classification: Hypertensive Reading Systolic Measurement: 193 Diastolic Measurement: 75 Screening for High Blood Pressure: Patient Exclusion, Hx of HTN [G9744] - Heart Failure (JOSE ALFREDO/ARB Therapy) Quality Measure: Heart Failure Left Ventricular Systolic Function: LV Ejection Fraction less than 40% [3021F] JOSE ALFREDO Inhibitor or ARB Therapy for LVSD: <JOSE ALFREDO Inhibitor or ARB therapy prescribed or currently taken> [4010F] (Avapro) - Heart Failure (Beta-bambi Therapy) Quality Measure: Heart Failure Left Ventricular Systolic Function: LV Ejection Fraction less than 40% [3021F] Beta-Bambi Therapy for LVEF < 40%: <Beta-Bambi Therapy Prescribed> [W3650] (Carvedilol) - Advance Directives Quality Measure: Measure #47: Care Plan Advance Directives Established: Yes Advance Directives Information Provided To Patient: No Advance Directives on File: No Living Will: Yes Power of Human Resources Records Clerk: Yes Advance Care Planning: <Care Plan/Decision Maker Documented; Discussed & Documented> [8913F] - Elder Abuse Suspicion Index Screening: Elder Abuse Suspicion Index Screening Rely on people for bathing, dressing, shopping, banking, etc: No Prevented from getting food, clothes, medication, etc: No Made to feel shamed or threatened by someone: No Forced to sign papers or use money against will: No Feel afraid, touched in ways not wanted or hurt physically: No Poor eye contact, withdrawn, malnourished, cuts or bruises: No Screening Result: Negative result EASI Reference Information: Arcadio RECINOS, Lisa C, Ciera D, [place].Development and validation of a tool to assist physicians identification of elder abuse: The Elder Abuse Suspicion Index (EASI ). Journal of Elder Abuse and Neglect, 2008; 20 (3): 276-300. - Elder Maltreatment Screen Quality Measures: Elder Maltreatment Screen and Follow-Up Plan Elder Maltreatment Screen: <Negative, No Follow-Up Plan Required> [S6454]
== END 2019-09-19 12:25 | disposition home health service (06) ==
LOC: ER 09:36 → MEDSURG 12:55
PROVIDERS: ADMIT Internal Medicine; ATTEND Internal Medicine
DX: I50.9 Heart failure, unspecified (principal); R06.09 Other forms of dyspnea; I10 Essential (primary) hypertension; Z95.0 Presence of cardiac pacemaker; I48.91 Unspecified atrial fibrillation; Z79.01 Long term (current) use of anticoagulants; R60.9 Edema, unspecified; E11.9 Type 2 diabetes mellitus without complications; Z79.4 Long term (current) use of insulin; E03.9 Hypothyroidism, unspecified; Z95.5 Presence of coronary angioplasty implant and graft; Z85.828 Personal history of other malignant neoplasm of skin
CPT/HCPCS: 85025; 85730; 85610; 80048; 80053; 36416; 82948; 84484; 85027; 83880; 71046; 93005 ×2; 93010; G0378 ×2; J3490; 96374; 99217; 99220; 99285; J1940

== ENCOUNTER 2019-10-02 10:04 | Inpatient (IN) | payer MEDICARE, OTHER ==
[2019-10-02 10:31] LABS: HEMATOCRIT 18.3 % (35.0-47.0); MEAN CELL VOLUME 112.3 fl (81-97); MEAN CORPUSCULAR HEMOGLOBIN 33.1 pg (27-33); MEAN CORPUSCULAR HGB CONC 29.5 g/dl (32-36); MEAN PLATELET VOLUME 10.3 fl (7.4-10.4); PLATELET COUNT 234 K/uL (130-400); RED BLOOD COUNT 1.63 M/uL (3.80-5.40); RED CELL DISTRIBUTION WIDTH 20.1 % (11.5-14.5); WHITE BLOOD COUNT W/O DIFF 7.8 K/uL (4.2-12.2)
--- NOTE | 2019-10-02 10:33 | Emergency Department Record ---
History of Present Illness - General Chief complaint: Weakness Stated complaint: SOB Time Seen by Provider: 10/02/19 10:08 Source: Patient, Family Mode of Arrival: Ambulatory Limitations: No limitations - History of Present Illness Initial comments: The patient is here due to generalized weakness and fatigue for 2-3 days. She states the symptoms have been mild for about 10 days but now worsening. She has had some mild CURTIS but no CP. The patient also denies any black or bloody stools. She was recently admitted here 2 weeks ago for CHF and was discharged with a HGB of 8.4. MD Complaint: Generalized weakness, Lack of energy Onset/Timin -: Days(s) Severity: Moderate Quality: Aching Consistency: Constant - [place] Coma Scale Eye Response: (4) Open spontaneously Motor Response: (6) Obeys commands Verbal Response: (5) Oriented Tara Total: 15 - Symptoms of Stroke Onset of Symptoms Date: 10/02/19 - Related Data Previous Rx's Medication Instructions Recorded Carvedilol [Coreg] 25 mg PO BID tablet 09/19/19 Furosemide [Lasix] 20 tab PO DAILY 30 Days #30 09/19/19 Allergies Allergy/AdvReac Type Severity Reaction Status Date / Time Penicillins Allergy HIVES Verified 10/02/19 10:12 Travel Screening - Travel/Exposure Within Last 30 Days Have you traveled within the last 30 days?: No - Travel/Exposure Within Last Year Have you traveled outside the [place] in the last year?: No - Additonal Travel Details Have you been exposed to anyone with a communicable illness?: No - Travel Symptoms Symptom Screening: None Review of Systems Constitutional: Denies: Chills, Fever Eyes: Denies: Eye discharge ENT: Denies: Congestion Respiratory: Denies: Cough Cardiovascular: Reports: Dyspnea on exertion. Denies: Chest pain Endocrine: Denies: Fatigue Gastrointestinal: Denies: Vomiting Genitourinary: Denies: Dysuria Musculoskeletal: Denies: Arthralgia Past Medical History - SOCIAL HISTORY Smoking Status: Never smoker Alcohol Use: None Drug Use: None - RESPIRATORY Hx Respiratory Disorders: No - CARDIOVASCULAR Hx Cardio Disorders: Yes Hx Hypertension: Yes Hx Pacemaker/Defib: Yes Comment:: high cholesterol - NEURO Hx Neuro Disorders: Yes Hx Neuropathy: Yes - GI Hx GI Disorders: No - Hx Genitourinary Disorders: No - ENDOCRINE Hx Endocrine Disorders: Yes Hx Diabetes: Yes Hx Thyroid Disease: Yes - MUSCULOSKELETAL Hx Musculoskeletal Disorders: Yes Hx Gout: Yes - PSYCH Hx Psych Problems: No - HEMATOLOGY/ONCOLOGY Hx Hematology/Oncology Disorders: Yes Hx Anemia: Yes Hx Cancer: Yes (skin basal cell) Hx Chemotherapy: No Hx Radiation Therapy: No Family Medical History Any Significant Family History?: Yes Physical Exam - General General Appearance: Alert, Oriented x3, Cooperative, No acute distress (The patient appears very pale at this time.) - Head Head exam: Atraumatic, Normocephalic, Normal inspection - Eye Eye exam: negative: Normal appearance, Conjunctival injection - ENT Throat exam: Normal inspection. negative: Tonsillar erythema, Tonsillar exudate - Neck Neck exam: Normal inspection, Full ROM. negative: Tenderness - Respiratory Respiratory exam: Normal lung sounds bilaterally. negative: Respiratory distress - Cardiovascular Cardiovascular Exam: Regular rate, Normal rhythm, Normal heart sounds - GI/Abdominal GI/Abdominal exam: Soft, Normal bowel sounds. negative: Tenderness - Rectal Rectal exam: Heme (-) stool - Extremities Extremities exam: Normal inspection, Full ROM, Normal capillary refill. negative: Tenderness - Back Back exam: Reports: Normal inspection - Neurological Neurological exam: Alert, Normal gait. negative: Abnormal gait, Motor sensory deficit Course Vital Signs 10/02/19 10:05 Temperature 97.6 F Pulse Rate 72 Respiratory 17 Rate Blood Pressure 111/61 Pulse Ox 97 - Reevaluation(s) Reevaluation #1: The patient is doing very well at this time and denies any CP or SOB. I did discuss the severe anemia with the patient and the need for hospital admission and she does agree. I then did discuss the case with Dr. Hilton and he does accept the patient for admission. 10/02/19 11:36 Medical Decision Making - Data Complexity MDM Data: Labs Ordered and/or Reviewed, X-Ray Ordered and/or Reviewed, EKG Ordered and/or Reviewed - Lab Data Result diagrams: 10/02/19 10:13 10/02/19 10:13 - EKG Data -: EKG Interpreted by Me EKG: No Acute Changes, Unchanged From Previous - Radiology Data Radiology results: Report reviewed (CXR: Neg) Disposition Disposition: Admit Clinical Impression: Anemia Qualifiers: Anemia type: other cause Disposition: Still a Patient at [facility] Decision to Admit: Admit from ER Decision to Admit Date: 10/02/19 Decision to Admit Time: 11:37 Accepting Physician: Lida Time Discussed w/Accepting Physician: 11:37 Forms: Patient Portal Access Time of Disposition: 11:38 Quality - Quality Measures Quality Measures: N/A - Blood Pressure Screening View Details: Yes Does Patient Have Any of the Following: No Blood Pressure Classification: Normal BP Reading Systolic Measurement: 111 Diastolic Measurement: 61 Screening for High Blood Pressure: < Normal BP, F/U Not Required > [G8783]
[2019-10-02 10:35] LABS: HEMOGLOBIN 5.4 gm/dl (11.6-16.0)
[2019-10-02 10:43] LABS: ANISOCYTOSIS 2+; BILIRUBIN,TOTAL 2.2 mg/dL (0.2-1.0); CREATININE 1.6 mg/dL (0.5-0.9); HYPOCHROMIA 2+; PLATELET ESTIMATE NORMAL (NORMAL)
[2019-10-02 10:44] LABS: TOTAL PROTEIN 6.6 g/dL (6.6-8.7)
[2019-10-02 10:45] LABS: INR 3.1; PARTIAL THROMBOPLASTIN TIME 36.6 SECONDS (24.5-39.1); PROTHROMBIN TIME (PATIENT) 30.4 SECONDS (9.5-12.1)
[2019-10-02 10:49] LABS: ALB/GLOB RATIO 1.9 (1.1-1.8); ALBUMIN 4.3 g/dL (4.0-5.0)
--- NOTE | 2019-10-02 11:35 | RADIOLOGY REPORT ---
EXAMINATION: Two View Chest Radiographs EXAM DATE: 10/02/2019 11:26 AM TECHNIQUE: Frontal and lateral views INDICATION: SOB COMPARISON: February 13 03/02/2020 ENCOUNTER: Not applicable FINDINGS: The heart, mediastinum, and pulmonary vasculature are normal. No lung consolidation or pleural effu sions are present. No pneumothorax. Left cardiac pacing device unchanged. Resolution of the previous small pleural effusions. There are 2 radiopaque surgical screw anchors projecting at the left head of the humerus as before. IMPRESSION: No acute process. Dictated by: Calvin Art DO on 10/02/2019 11:32 AM. .
--- NOTE | 2019-10-02 11:37 | History & Physical ---
History of Present Illness - Date of Service Date of Service for History & Physical: 10/02/19 - History of Present Illness History of Present Illness: Mrs Sam is a pleasant 83 y/o female with medical history of chronic atrial fibrillation, chronic congestive heart failure here presenting with complaint of fatigue and weakness. She says that she has had worsening symptoms over the past 2-3 days with shortness of breath but denies chest pain or palpitations. She was recently admitted to [facility] for exacerbation of heart failure and was diuresed and discharged home after symptoms resolved. At that time her Hgb was 8.4 on 09/19/19. She denies dark stools, or any other noticeable blood loss. She is on anticoagulation with Coumadin and is also on Plavix. Her INR on 09/19 was 2.2 and today is 3.1. She says that about a week ago she had her INR checked and it was 6. She says her primary doctor held her Coumadin for 3 days then she resumed it. ED course: Positive labs: Hgb 5.4, Trop 0.025, pro-BNP 2020 CXR: No acute process, Pacer in place. Type and Screen 2 units PRBC ordered. On examination this afternoon the patient is weak but is able to converse. She is no cute distress. She will be admitted for transfusion of PRBC and CHF. PCP: Dr. Fitch Travel Screening - Travel/Exposure Within Last 30 Days Have you traveled within the last 30 days?: No - Travel/Exposure Within Last Year Have you traveled outside the [place] in the last year?: No - Additonal Travel Details Have you been exposed to anyone with a communicable illness?: No - Travel Symptoms Symptom Screening: None Review of Systems Constitutional: Denies: Chills, Fever Eyes: Denies: Eye discharge ENT: Denies: Congestion Respiratory: Denies: Cough Cardiovascular: Reports: Dyspnea on exertion. Denies: Chest pain Endocrine: Denies: Fatigue Gastrointestinal: Denies: Vomiting Genitourinary: Denies: Dysuria Musculoskeletal: Denies: Arthralgia Past Medical History - SOCIAL HISTORY Smoking Status: Never smoker Alcohol Use: None Drug Use: None - RESPIRATORY Hx Respiratory Disorders: No - CARDIOVASCULAR Hx Cardio Disorders: Yes Hx Hypertension: Yes Hx Pacemaker/Defib: Yes Comment:: high cholesterol - NEURO Hx Neuro Disorders: Yes Hx Neuropathy: Yes - GI Hx GI Disorders: No - Hx Genitourinary Disorders: No - ENDOCRINE Hx Endocrine Disorders: Yes Hx Diabetes: Yes Hx Thyroid Disease: Yes - MUSCULOSKELETAL Hx Musculoskeletal Disorders: Yes Hx Gout: Yes - PSYCH Hx Psych Problems: No - HEMATOLOGY/ONCOLOGY Hx Hematology/Oncology Disorders: Yes Hx Anemia: Yes Hx Cancer: Yes (skin basal cell) Hx Chemotherapy: No Hx Radiation Therapy: No Family Medical History Any Significant Family History?: Yes H&P Meds/Allergies - Allergies Allergies: Allergies Allergy/AdvReac Type Severity Reaction Status Date / Time Penicillins Allergy HIVES Verified 10/02/19 10:12 - Home Medications Previous Rx's Medication Instructions Recorded Carvedilol [Coreg] 25 mg PO BID tablet 09/19/19 Furosemide [Lasix] 20 tab PO DAILY 30 Days #30 09/19/19 Physical Exam - Vital Signs Vital Signs: Vital Signs - Last 24 Hrs Temp Pulse Resp BP Pulse Ox 10/02/19 10:05 97.6 F 72 17 111/61 97 - General General Appearance: Alert, Oriented x3, Cooperative, No acute distress (The patient appears very pale at this time.) Limitations: No limitations - Head Head exam: Atraumatic, Normocephalic, Normal inspection - Eye Eye exam: negative: Normal appearance, Conjunctival injection - ENT Throat exam: Normal inspection. negative: Tonsillar erythema, Tonsillar exudate - Neck Neck exam: Normal inspection, Full ROM. negative: Tenderness - Respiratory Respiratory exam: Normal lung sounds bilaterally. negative: Respiratory di stress - Cardiovascular Cardiovascular Exam: Regular rate, Normal rhythm, Normal heart sounds - GI/Abdominal GI/Abdominal exam: Soft, Normal bowel sounds. negative: Tenderness - Rectal Rectal exam: Heme (-) stool - Extremities Extremities exam: Normal inspection, Full ROM, Normal capillary refill. negative: Tenderness - Back Back exam: Reports: Normal inspection - Neurological Neurological exam: Alert, Normal gait. negative: Abnormal gait, Motor sensory deficit Results - Labs Result Diagrams: 10/02/19 10:13 10/02/19 10:13 Labs Last 24 Hours: Laboratory Results - last 24 hr 10/02/19 10/02/19 10/02/19 10:13 10:13 10:13 WBC 7.8 RBC 1.63 L Hgb 5.4 L* Hct 18.3 L MCV 112.3 H MCH 33.1 H MCHC 29.5 L RDW 20.1 H Plt Count 234 MPV 10.3 Neutrophils % 86.0 H Band Neutrophils % 3.0 Eosinophils % Not Reportable Basophils % Not Reportable Absolute Neutrophils 6.70 Lymphocytes 8.0 L Monocytes 3.0 Platelet Estimate Normal Hypochromasia 2+ Anisocytosis 2+ PT 30.4 H INR 3.1 APTT 36.6 Sodium 139 Potassium 4.6 H Chloride 101 Carbon Dioxide 20.0 L Anion Gap 18.0 H BUN 37 H Creatinine 1.6 H Estimated GFR 33 Random Glucose 136 H Calcium 9.1 Total Bilirubin 2.20 H AST 19 ALT 13 Alkaline Phosphatase 63 Troponin T 0.025 H NT-Pro-B Natriuret Pep 2020.00 H Total Protein 6.6 Albumin 4.3 Globulin 2.3 Albumin/Globulin Ratio 1.9 H VTE H&P Assessment - Risk for VTE Risk for VTE: Yes Risk Level: High Risk Assessment Date: 10/02/19 Risk Assessment Time: 11:43 VTE Orders Placed or Will Be Placed: No VTE Reason for No Prophylaxis: Contraindicated (Low Hgb) Plan - Inpatient Certification Inpatient Certification: Anemia likely as a result of chronic blood loss. 10/02/19 13:19 - Detailed Diagnosis and Plan (1) Anemia Current Visit: Yes Status: Chronic Qualifiers: Anemia type: other cause Base Code: D64.9 - ANEMIA, UNSPECIFIED Comment: - 10/02/19: - Hgb 8.4 --> 5.4 since 09/19.DDx: blood loss, coumadin use, chronic diseasse. - Fecal occult blood negative, no other active source of bleed identified. - Hold anticogulation with Coumadin and Plavix. - Due to hx of CHF Hgb should be maintained > 8. - Type/Screen 2 units PRBC now and monitor any indication of volume overload. Diuresis with Lasix IV. (2) Renal insufficiency Current Visit: Yes Status: Acute Base Code: N28.9 - DISORDER OF KIDNEY AND URETER, UNSPECIFIED Comment: 10/02/19: - Acute on chronic 2/2 to volume loss. Prevous lab shows stage 3 CKD. - Bun/Cr 37/1.6, Egfr 33 - Monitor with daily labs. Avoid nephrotoxins. (3) CHF (congestive heart failure) Current Visit: No Status: Acute Qualifiers: Heart failure type: unspecified Heart failure chronicity: unspecified Qualified Code(s): I50.9 - Heart failure, unspecified Base Code: I50.9 - HEART FAILURE, UNSPECIFIED Comment: 10/02/19 - Weakness, fatigue. Denies SOB, chest pain or edema. - BNP 2020 on admission - CXR: interstitial edema, no symptoms of infection present - IV Lasix 40mg daily. Daily weights and I/Os, fluid restriction to 1.5 liters daily. - Fluid restrictions while admitted. - Resume BB, JOSE ALFREDO, statin meds. - electronic device monitor ordered. - 2D echo ordered. (4) Chronic atrial fibrillation Current Visit: Yes Status: Acute Base Code: I48.20 - CHRONIC ATRIAL F IBRILLATION, UNSPECIFIED Comment: 10/02/19: - ECG: - electronic device monitor: - Rate controlled on Coreg 25mg BID. Anticoagulation with Coumadin 3 mg daily. (5) Elevated troponin Current Visit: Yes Status: Acute Base Code: R79.89 - OTHER SPECIFIED ABNORMAL FINDINGS OF BLOOD CHEMISTRY Comment: 10/02/19: - Likely 2/2 to kidney dsfx and chronic a fib. - Indeterminate range 0.025. - No ECG changes. - Keep on ekg monitor. (6) Diabetes mellitus Current Visit: Yes Status: Acute Base Code: E11.9 - TYPE 2 DIABETES MELLITUS WITHOUT COMPLICATIONS Comment: 10/02/19: - On Metformin 100mg BID, Tresiba 36 units QHS. - Patient will bring in Tresiba from home. - Accuchecks Q12H, ADA diet. (7) Hypothyroid Current Visit: Yes Status: Acute Base Code: E03.9 - HYPOTHYROIDISM, UNSPECIFIED Comment: 10/02/19: - Resume Levothyroxine 50mcg daily. (8) DVT prophylaxis Current Visit: No Status: Acute Base Code: Z29.9 - ENCOUNTER FOR PROPHYLACTIC MEASURES, UNSPECIFIED Comment: 10/02/19 - Hold prophylaxis. INR 3.1 - Resume anticoagulation with resolution of anemia. (9) Full code status Current Visit: No Status: Acute Base Code: Z78.9 - OTHER SPECIFIED HEALTH STATUS Comment: 10/02/19 - Full code this admission
[2019-10-02] MEDS ORDERED: FUROSEMIDE IV 20MG/2ML VIAL IVP ONE ×2 (11:38→22:00)
[2019-10-02] MEDS ORDERED: PHYTONADIONE 10 MG/ML AMPUL PO ONE (11:53)
[2019-10-02] MEDS: GABAPENTIN 300 MG CAPSULE PO SCH ×3 (13:05→22:28)
[2019-10-02 13:33] LABS: ABO GROUP B
[2019-10-02 13:34] LABS: ANTIBODY SCREEN POSITIVE (NEGATIVE); RH TYPE POSITIVE
[2019-10-02] MEDS ORDERED: METFORMIN 500 MG TABLET PO SCH (22:00)
[2019-10-02] MEDS: INSULIN DEGLUDEC 36 UNIT SQ SCH (22:27)
[2019-10-02] MEDS: CARVEDILOL 12.5 MG TABLET PO SCH (22:28)
[2019-10-02] MEDS: ACETAMINOPHEN 325 MG TAB PO PRN (22:31)
[2019-10-03] MEDS ORDERED: AL HYDROX/MAG HYDROX 30ML UD PO ONE (04:59)
[2019-10-03 06:53] LABS: ABSOLUTE NEUTROPHIL COUNT 5.21; MEAN CELL VOLUME 116.4 fl (81-97); MEAN CORPUSCULAR HGB CONC 28.8 g/dl (32-36); MEAN PLATELET VOLUME 10.7 fl (7.4-10.4); PLATELET COUNT 228 K/uL (130-400); RED BLOOD COUNT 1.52 M/uL (3.80-5.40); RED CELL DISTRIBUTION WIDTH 21.1 % (11.5-14.5); WHITE BLOOD COUNT W/O DIFF 6.7 K/uL (4.2-12.2)
[2019-10-03 06:57] LABS: INR 1.6; PROTHROMBIN TIME (PATIENT) 16.5 SECONDS (9.5-12.1)
[2019-10-03] MEDS: LEVOTHYROXINE SODIUM 50 MCG TABLET PO SCH (06:57)
[2019-10-03 07:00] LABS: MEAN CORPUSCULAR HEMOGLOBIN 33.5 pg (27-33)
[2019-10-03 07:01] LABS: HEMOGLOBIN 5.1 gm/dl (11.6-16.0)
[2019-10-03 07:02] LABS: HEMATOCRIT 17.7 % (35.0-47.0)
[2019-10-03 07:03] LABS: CREATININE 1.7 mg/dL (0.5-0.9)
[2019-10-03 07:25] LABS: ANISOCYTOSIS 2+; TEAR DROP CELLS 1+
[2019-10-03 07:49] LABS: ANTIGLOBULIN CROSSMATCH COMPATIBLE
[2019-10-03 09:29] LABS: FERRITIN 657.5 ng/mL (13-150)
--- NOTE | 2019-10-03 10:22 | Physician Progress Note ---
Subjective - Date Date of Physician Progress Note: 10/03/19 Objective - Vital Signs Vital Signs: Vital Signs - Last 24 Hrs Temp Pulse Pulse Resp BP Pulse Ox 10/03/19 08:44 66 16 10/03/19 08:00 97.8 F 69 16 125/48 94 L 10/03/19 04:00 98.6 F 66 18 112/50 97 10/03/19 00:00 98.0 F 74 20 117/54 95 10/02/19 20:00 98.9 F 66 17 138/41 94 L 10/02/19 15:30 73 16 112/63 99 10/02/19 12:42 97.8 F 63 16 106/53 98 10/02/19 12:10 64 18 99/44 98 - General General Appearance: Alert, Oriented x3, Cooperative, No acute distress (The patient appears very pale at this time.) Limitations: No limitations - Head Head exam: Atraumatic, Normocephalic, Normal inspection - Eye Eye exam: negative: Normal appearance, Conjunctival injection - ENT ENT exam: Normal exam, Mucous membranes dry Throat exam: Normal inspection. negative: Tonsillar erythema, Tonsillar exudate - Neck Neck exam: Normal inspection, Full ROM. negative: Tenderness - Respiratory Respiratory exam: Normal lung sounds bilaterally, Wheezes (mild). negative: Respiratory distress - Cardiovascular Cardiovascular Exam: Regular rate, Normal rhythm, Normal heart sounds Peripheral Pulses: 2+: Radial (R), Radial (L), Dorsalis Pedis (R), Dorsalis Pedis (L) - GI/Abdominal GI/Abdominal exam: Soft, Normal bowel sounds. negative: Tenderness - Rectal Rectal exam: Deferred, Heme (-) stool - exam: Deferred - Extremities Extremities exam: Normal inspection, Full ROM, Normal capillary refill. negative: Tenderness - Back Back exam: Reports: Normal inspection - Neurological Neurological exam: Alert, Normal gait. negative: Abnormal gait, Motor sensory deficit Assessment and Plan - Assessment and Plan (1) Anemia Current Visit: Yes Status: Chronic Qualifiers: Anemia type: other cause Base Code: D64.9 - ANEMIA, UNSPECIFIED Comment: 10/03/19 -Hgb 8.4 (09/19/2019)--5.4-->5.1 DDx coumadin use, blood loss, poor RBC production -cont to hold coumadin and plavix, blood was not transfused during the night r/t antibodies but pt denies any h/o previous transfusions -O Neg transfusion starting this AM, pt denies any questions about the blood products -RFTs decreased but will give lasix between units and recheck this HS -recheck CBC after second unit, will eval in the AM for repeat units - 10/02/19: - Hgb 8.4 --> 5.4 since 09/19.DDx: blood loss, coumadin use, chronic diseasse. - Fecal occult blood negative, no other active source of bleed identified. - Hold anticogulation with Coumadin and Plavix. - Due to hx of CHF Hgb should be maintained > 8. - Type/Screen 2 units PRBC now and monitor any indication of volume overload. Diuresis with Lasix IV. (2) Renal insufficiency Current Visit: Yes Status: Acute Base Code: N28.9 - DISORDER OF KIDNEY AND URETER, UNSPECIFIED Comment: 10/03/19 -BUN 37-->47 -Cr 1.6-->1.7 -DDx fluid overload, s/e metformin, hypovolemia -Transfuse 2 unit PRBC, lasix after and repeat labs 10/02/19: - Acute on chronic 2/2 to volume loss. Prevous lab shows stage 3 CKD. - Bun/Cr 37/1.6, Egfr 33 - Monitor with daily labs. Avoid nephrotoxins. (3) CHF (congestive heart failure) Current Visit: No Status: Acute Qualifiers: Heart failure type: unspecified Heart failure chronicity: unspecified Qualified Code(s): I50.9 - Heart failure, unspecified Base Code: I50.9 - HEART FAILURE, UNSPECIFIED Comment: 10/03/19 -BNP 2020, unknown how consistent pt has been in Lasix at home -Past ECHO 03/2019, no known EF, repeat ECHO today -Continue BB, JOSE ALFREDO, and statin -Fluid restriction -Lasix after blood transfusion -continue cardiac monitoring 10/02/19 - Weakness, fatigue. Denies SOB, chest pain or edema. - BNP 2020 on admission - CXR: interstitial edema, no symptoms of infection present - IV Lasix 40mg daily. Daily weights and I/Os, fluid restriction to 1.5 liters daily. - Fluid restrictions while admitted. - Resume BB, JOSE ALFREDO, statin meds. - alarm security or surveillance monitor ordered. - 2D echo ordered. (4) Chronic atrial fibrillation Current Visit: Yes Status: Acute Base Code: I48.20 - CHRONIC ATRIAL FIBRILLATION, UNSPECIFIED Comment: 10/03/19: - ECG: - alarm security or surveillance monitor: - Rate controlled on Coreg 25mg BID. Anticoagulation with Coumadin 3 mg daily but held r/t bleeding risk and anemia (5) Diabetes mellitus Current Visit: Yes Status: Acute Base Code: E11.9 - TYPE 2 DIABETES MELLITUS WITHOUT COMPLICATIONS Comment: 10/03/19 -holding metformin r/t worsening RFTs 10/02/19: - On Metformin 100mg BID, Tresiba 36 units QHS. - Patient will bring in Tresiba from home. - Accuchecks Q12H, ADA diet. (6) Elevated troponin Current Visit: Yes Status: Acute Base Code: R79.89 - OTHER SPECIFIED ABNORMAL FINDINGS OF BLOOD CHEMISTRY Comment: 10/03/19 -trop 0.025-->0.016-->0.020, likely r/t RFTs -NO EKG changes -continue cardiac monitoring 10/02/19: - Likely 2/2 to kidney dsfx and chronic a fib. - Indeterminate range 0.025. - No ECG changes. - Keep on teletypesetter monitor. (7) Hypothyroid Current Visit: Yes Status: Acute Base Code: E03.9 - HYPOTHYROIDISM, UNSPECIFIED Comment: 10/03/19: - Resume Levothyroxine 50mcg daily. (8) Full code status Current Visit: No Status: Acute Base Code: Z78.9 - OTHER SPECIFIED HEALTH STATUS Comment: 10/03/19 - Full code this admission (9) DVT prophylaxis Current Visit: No Status: Acute Base Code: Z29.9 - ENCOUNTER FOR PROPHYLACTIC MEASURES, UNSPECIFIED Comment: 10/03/19 -INR 3.1-->1.6 but Hgb 5.1 this AM -pt transfusing 2 units PRBC today 10/02/19 - Hold prophylaxis. INR 3.1 - Resume anticoagulation with resolution of anemia. Results - Labs Result Diagrams: 10/03/19 06:10 10/03/19 06:10 Labs Last 24 Hours: Laboratory Results - last 24 hr 10/02/19 10/02/19 10/02/19 10:13 10:13 10:13 WBC 7.8 RBC 1.63 L Hgb 5.4 L* Hct 18.3 L MCV 112.3 H MCH 33.1 H MCHC 29.5 L RDW 20.1 H Plt Count 234 MPV 10.3 Neutrophils % 86.0 H Band Neutrophils % 3.0 Eosinophils % Not Reportable Basophils % Not Reportable Absolute Neutrophils 6.70 Lymphocytes 8.0 L Monocytes 3.0 Nucleated RBCs Platelet Estimate Normal Hypochromasia 2+ Anisocytosis 2+ Macrocytosis Tear Drop Cells Eosinophil Count PT 30.4 H INR 3.1 APTT 36.6 Sodium 139 Potassium 4.6 H Chloride 101 Carbon Dioxide 20.0 L Anion Gap 18.0 H BUN 37 H Creatinine 1.6 H Estimated GFR 33 Random Glucose 136 H Calcium 9.1 Iron TIBC % Saturation Ferritin Total Bilirubin 2.20 H AST 19 ALT 13 Alkaline Phosphatase 63 Troponin T 0.025 H NT-Pro-B Natriuret Pep 2021.00 H Total Protein 6.6 Albumin 4.3 Globulin 2.3 Albumin/Globulin Ratio 1.9 H Vitamin B12 ABO Group Rh Factor Antibody Screen Crossmatch 10/02/19 10/02/19 10/02/19 10:13 10:45 16:07 WBC RBC Hgb Hct MCV MCH MCHC RDW Plt Count MPV Neutrophils % Band Neutrophils % Eosinophils % Basophils % Absolute Neutrophils Lymphocytes Monocytes Nucleated RBCs Platelet Estimate Hypochromasia Anisocytosis Macrocytosis Tear Drop Cells Eosinophil Count PT INR APTT Sodium Potassium Chloride Carbon Dioxide Anion Gap BUN Creatinine Estimated GFR Random Glucose Calcium Iron TIBC % Saturation Ferritin Total Bilirubin AST ALT Alkaline Phosphatase Troponin T 0.016 H NT-Pro-B Natriuret Pep Total Protein Albumin Globulin Albumin/Globulin Ratio Vitamin B12 ABO Group B Rh Factor Positive Antibody Screen Positive H Crossmatch Yes 10/03/19 10/03/19 10/03/19 00:00 06:00 06:00 WBC RBC Hgb Hct MCV MCH MCHC RDW Plt Count MPV Neutrophils % Band Neutrophils % Eosinophils % Basophils % Absolute Neutrophils Lymphocytes Monocytes Nucleated RBCs Platelet Estimate Hypochromasia Anisocytosis Macrocytosis Tear Drop Cells Eosinophil Count PT INR APTT Sodium Potassium Chloride Carbon Dioxide Anion Gap BUN Creatinine Estimated GFR Random Glucose Calcium Iron 71 TIBC 241 % Saturation 29 Ferritin 657.5 H Total Bilirubin AST ALT Alkaline Phosphatase Troponin T 0.020 H NT-Pro-B Natriuret Pep Total Protein Albumin Globulin Albumin/Globulin Ratio Vitamin B12 481.3 ABO Group Rh Factor Antibody Screen Crossmatch 10/03/19 10/03/19 10/03/19 06:10 06:10 06:10 WBC 6.7 RBC 1.52 L Hgb 5.1 L* Hct 17.7 L* MCV 116.4 H MCH 33.5 H MCHC 28.8 L RDW 21.1 H Plt Count 228 MPV 10.7 H Neutrophils % 73.0 Band Neutrophils % 1.0 Eosinophils % Not Reportable Basophils % Not Reportable Absolute Neutrophils 5.21 Lymphocytes 16.0 Monocytes 8.0 Nucleated RBCs 1.0 Platelet Estimate Hypochromasia Anisocytosis 2+ Macrocytosis 2+ Tear Drop Cells 1+ Eosinophil Count 2.0 PT 16.5 H INR 1.6 APTT Sodium 141 Potassium 4.5 Chloride 103 Carbon Dioxide 22.0 Anion Gap 16.0 BUN 47 H Creatinine 1.7 H Estimated GFR 30 Random Glucose 97 Calcium 9.3 Iron TIBC % Saturation Ferritin Total Bilirubin AST ALT Alkaline Phosphatase Troponin T NT-Pro-B Natriuret Pep Total Protein Albumin Globulin Albumin/Globulin Ratio Vitamin B12 ABO Group Rh Factor Antibody Screen Crossmatch - Imaging and Cardiology Chest x-ray Status: Pending DVT/PE Assessment - Risk for VTE Risk for VTE: No Risk Level: High Risk Assessment Date: 10/02/19 Risk Assessment Time: 11:43 VTE Orders Placed or Will Be Placed: No VTE Reason for No Prophylaxis: Contraindicated (Low Hgb) - Active Medicaitons Current Medications: Current Medications Acetaminophen (Tylenol 325mg) 650 mg PO Q6H PRN PRN Reason: PAIN - MILD(1-4)/FEVER Last Admin: 10/02/19 22:31 Dose: 650 mg Documented by: Allopurinol (Zyloprim) 100 mg PO DAILY [facility] Amlodipine Besylate (Norvasc) 10 mg PO DAILY [facility] Atorvastatin Calcium (Lipitor) 40 mg PO DAILY [facility] Carvedilol (Coreg) 25 mg PO BID [facility] Last Admin: 10/02/19 22:28 Dose: 25 mg Documented by: Gabapentin (Neurontin) 300 mg PO QID [facility] Last Admin: 10/02/19 22:28 Dose: 300 mg Documented by: Levothyroxine Sodium (Synthroid) 50 mcg PO DAILYTHY [facility] Last Admin: 10/03/19 06:57 Dose: 50 mcg Documented by: Losartan Potassium (Losartan Potassium) 100 mg PO DAILY [facility] Non-Formulary Medication (Insulin Degludec [Tresiba Flextouch U-100]) 36 unit SQ QHS [facility] Last Admin: 10/02/19 22:27 Dose: 36 unit Documented by: ROHIT Plan - Labs Result Diagrams: 10/03/19 06:10 10/03/19 06:10
[2019-10-03] MEDS: AMLODIPINE BESYLATE 5MG TAB PO SCH (10:53)
[2019-10-03] MEDS: ATORVASTATIN 20 MG TABLET PO SCH (10:53)
[2019-10-03] MEDS: CARVEDILOL 12.5 MG TABLET PO SCH ×2 (10:53→22:27)
[2019-10-03] MEDS: GABAPENTIN 300 MG CAPSULE PO SCH ×4 (10:53→22:27)
[2019-10-03] MEDS: LOSARTAN POTASSIUM 100 MG TABLET PO SCH (10:53)
[2019-10-03] MEDS: ALLOPURINOL 100 MG TAB PO SCH (10:54)
--- NOTE | 2019-10-03 13:27 | Occupational Therapy Tx Note ---
Occupational Therapy Tx Note - Treatment Note Occupational Therapy Treatment Note: Detail (Received OT order, pt waiting for blood transfusion therefore will hold OT eval until tomorrow. Thank you)
[2019-10-03 13:47] LABS: ANTIGLOBULIN CROSSMATCH COMPATIBLE
--- NOTE | 2019-10-03 14:07 | Physical Therapy Tx Note ---
Physical Therapy Tx Note - Treatment Note Physical Therapy Tx Note: Detail (PT ordered received. Patient is awaiting blood transfusion of a second unit per RN. Will hold PT this pm.)
[2019-10-03 19:34] LABS: HEMATOCRIT 24.3 % (35.0-47.0); HEMOGLOBIN 7.1 gm/dl (11.6-16.0); MEAN CELL VOLUME 106.1 fl (81-97); MEAN CORPUSCULAR HGB CONC 29.2 g/dl (32-36); MEAN PLATELET VOLUME 10.3 fl (7.4-10.4); PLATELET COUNT 219 K/uL (130-400); RED BLOOD COUNT 2.29 M/uL (3.80-5.40); RED CELL DISTRIBUTION WIDTH 23.8 % (11.5-14.5); WHITE BLOOD COUNT W/O DIFF 6.3 K/uL (4.2-12.2)
[2019-10-03 19:54] LABS: ANISOCYTOSIS 3+; POLYCHROMASIA 1+; TEAR DROP CELLS 1+
[2019-10-03] MEDS: INSULIN DEGLUDEC 36 UNIT SQ SCH (22:27)
[2019-10-03] MEDS: CLOPIDOGREL 75MG TABLET PO SCH (22:27)
[2019-10-04] MEDS: LEVOTHYROXINE SODIUM 50 MCG TABLET PO SCH (06:14)
[2019-10-04] MEDS: ACETAMINOPHEN 325 MG TAB PO PRN (06:14)
[2019-10-04 06:15] LABS: ANTIGLOBULIN CROSSMATCH COMPATIBLE
[2019-10-04 06:17] LABS: ANTIGLOBULIN CROSSMATCH COMPATIBLE
[2019-10-04 06:47] LABS: HEMATOCRIT 25.4 % (35.0-47.0); HEMOGLOBIN 7.6 gm/dl (11.6-16.0); MEAN CELL VOLUME 105.8 fl (81-97); MEAN CORPUSCULAR HEMOGLOBIN 31.6 pg (27-33); MEAN CORPUSCULAR HGB CONC 29.9 g/dl (32-36); MEAN PLATELET VOLUME 10.8 fl (7.4-10.4); PLATELET COUNT 239 K/uL (130-400); RED CELL DISTRIBUTION WIDTH 25.2 % (11.5-14.5); WHITE BLOOD COUNT W/O DIFF 7.3 K/uL (4.2-12.2)
[2019-10-04 07:05] LABS: ALB/GLOB RATIO 1.8 (1.1-1.8); ALBUMIN 4.3 g/dL (4.0-5.0); ANISOCYTOSIS 3+; BILIRUBIN,TOTAL 1.8 mg/dL (0.2-1.0); CREATININE 1.6 mg/dL (0.5-0.9); POLYCHROMASIA 1+; TEAR DROP CELLS 1+; TOTAL PROTEIN 6.7 g/dL (6.6-8.7)
[2019-10-04] MEDS ORDERED: WARFARIN 1 MG TABLET PO ONE (10:00)
[2019-10-04] MEDS ORDERED: FUROSEMIDE IV 20MG/2ML VIAL IV ONE (10:00)
[2019-10-04] MEDS: ENOXAPARIN 100 MG/ML SYR SQ SCH (10:01)
[2019-10-04] MEDS: GABAPENTIN 300 MG CAPSULE PO SCH ×4 (10:02→21:28)
[2019-10-04] MEDS: LOSARTAN POTASSIUM 100 MG TABLET PO SCH (10:02)
[2019-10-04] MEDS: CLOPIDOGREL 75MG TABLET PO SCH (10:02)
[2019-10-04] MEDS: AMLODIPINE BESYLATE 5MG TAB PO SCH (10:03)
[2019-10-04] MEDS: ATORVASTATIN 20 MG TABLET PO SCH (10:03)
[2019-10-04] MEDS: ALLOPURINOL 100 MG TAB PO SCH (10:04)
[2019-10-04] MEDS: CARVEDILOL 12.5 MG TABLET PO SCH ×2 (10:04→21:28)
--- NOTE | 2019-10-04 11:13 | Physician Progress Note ---
Subjective - Date Date of Physician Progress Note: 10/04/19 Objective - Vital Signs Vital Signs: Vital Signs - Last 24 Hrs Temp Pulse Pulse Resp BP Pulse Ox 10/04/19 09:00 68 17 10/04/19 06:00 99.0 F 68 17 140/49 94 L 10/03/19 19:37 98.0 F 68 18 132/84 93 L 10/03/19 16:00 98.4 F 64 16 138/54 10/03/19 12:00 98.4 F 62 66 18 152/63 96 - General General Appearance: Alert, Oriented x3, Cooperative, No acute distress Limitations: No limitations - Head Head exam: Atraumatic, Normocephalic, Normal inspection - Eye Eye exam: negative: Normal appearance, Conjunctival injection - ENT ENT exam: Normal exam, Mucous membranes dry Throat exam: Normal inspection. negative: Tonsillar erythema, Tonsillar exudate - Neck Neck exam: Normal inspection, Full ROM. negative: Tenderness - Respiratory Respiratory exam: Normal lung sounds bilaterally. negative: Respiratory distress, Wheezes - Cardiovascular Cardiovascular Exam: Regular rate, Diastolic murmur, Irregular rhythm (chronic afib). negative: Normal heart sounds (murmur) Peripheral Pulses: 2+: Radial (R), Radial (L), Dorsalis Pedis (R), Dorsalis Pedis (L) - GI/Abdominal GI/Abdominal exam: Soft, Normal bowel sounds. negative: Tenderness - Rectal Rectal exam: Deferred, Heme (-) stool - exam: Deferred - Extremities Extremities exam: Normal inspection, Full ROM, Normal capillary refill, Pedal edema (+2 hui, up to knee left and mid calf right). negative: Tenderness - Back Back exam: Reports: Normal inspection - Neurological Neurological exam: Alert, Normal gait. negative: Abnormal gait, Motor sensory deficit - Skin Skin exam: Abrasion (hui lower extremities (pt reports chronic itching)), Dry. negative: Intact Type of lesion: abrasion Distribution of rash: Generalized Description of rash: Urticarial Assessment and Plan - Assessment and Plan (1) Anemia Current Visit: Yes Status: Chronic Qualifiers: Anemia type: other cause Base Code: D64.9 - ANEMIA, UNSPECIFIED Comment: 10/04/19 -Hgb 5.4-->5.1-->7.1--7.6 after 2 units PRBC -pt maintained hgb through the night and with the addition of plavix (pt had STENT placed January 2019) -repeat 2 units PRBC and adding lovenox SQ 1mg/kg and pharmacy returning to coumadin -pt daughter is req abd CT r/t anema (pt does not have epigastric tenderness, no chhaya blood or black tarry stools, no bloody emesis noted) but dramatic Hgb change in 2 weeks 10/03/19 -Hgb 8.4 (09/19/2019)--5.4-->5.1 DDx coumadin use, blood loss, poor RBC production -cont to hold coumadin and plavix, blood was not transfused during the night r/t antibodies but pt denies any h/o previous transfusions -O Neg transfusion starting this AM, pt denies any questions about the blood products -RFTs decreased but will give lasix between units and recheck this HS -recheck CBC after second unit, will eval in the AM for repeat units - 10/02/19: - Hgb 8.4 --> 5.4 since 09/19.DDx: blood loss, coumadin use, chronic diseasse. - Fecal occult blood negative, no other active source of bleed identified. - Hold anticogulation with Coumadin and Plavix. - Due to hx of CHF Hgb should be maintained > 8. - Type/Screen 2 units PRBC now and monitor any indication of volume overload. Diuresis with Lasix IV. (2) Renal insufficiency Current Visit: Yes Status: Acute Base Code: N28.9 - DISORDER OF KIDNEY AND URETER, UNSPECIFIED Comment: 10/04/19 -BUN 37-->47-->50 -Cr 1.6-->1.7-->1.6 continue lasix, repeat BMP with CBC after 2 more units PRBC -pt baseline Cr 1.3, will continue to monitor, avoid nephrotoxins 10/03/19 -BUN 37-->47 -Cr 1.6-->1.7 -DDx fluid overload, s/e metformin, hypovolemia -Transfuse 2 unit PRBC, lasix after and repeat labs 10/02/19: - Acute on chronic 2/2 to volume loss. Prevous lab shows stage 3 CKD. - Bun/Cr 37/1.6, Egfr 33 - Monitor with daily labs. Avoid nephrotoxins. (3) CHF (congestive heart failure) Current Visit: No Status: Acute Qualifiers: Heart failure type: unspecified Heart failure chronicity: unspecified Qualified Code(s): I50.9 - Heart failure, unspecified Base Code: I50.9 - HEART FAILURE, UNSPECIFIED Comment: 10/04/19 -EF 55-60% ECHO, MV regurge, tricuspid regurge -pt weakness and fatigue improving but SOB remains - Lasix 20mg IVP this AM and repeat after 1st unit PRBC today -cont monitoring and evaluation advisor 10/03/19 -BNP 2020, unknown how consistent pt has been in Lasix at home -Past ECHO 03/2019, no known EF, repeat ECHO today -Continue BB, JOSE ALFREDO, and statin -Fluid restriction -Lasix after blood transfusion -continue cardiac monitoring 10/02/19 - Weakness, fatigue. Denies SOB, chest pain or edema. - BNP 2020 on admission - CXR: interstitial edema, no symptoms of infection present - IV Lasix 40mg daily. Daily weights and I/Os, fluid restriction to 1.5 liters daily. - Fluid restrictions while admitted. - Resume BB, JOSE ALFREDO, statin meds. - lunchroom monitor ordered. - 2D echo ordered. (4) Chronic atrial fibrillation Current Visit: Yes Status: Acute Base Code: I48.20 - CHRONIC ATRIAL FIBRILLATION, UNSPECIFIED Comment: 10/04/19 -returning to anticoagulation with lovenox and pharmacy dosing coumadin as Hgb has stabilized 10/03/19: - ECG: - lunchroom monitor: - Rate controlled on Coreg 25mg BID. Anticoagulation with Coumadin 3 mg daily but held r/t bleeding risk and anemia (5) Diabetes mellitus Current Visit: Yes Status: Acute Base Code: E11.9 - TYPE 2 DIABETES MELLITUS WITHOUT COMPLICATIONS Comment: 10/04/19 -continue to hold metformin, monitor RFTs -ADA diet -adding low dose S/S coverage since stopping metformin 10/03/19 -holding metformin r/t worsening RFTs 10/02/19: - On Metformin 100mg BID, Tresiba 36 units QHS. - Patient will bring in Tresiba from home. - Accuchecks Q12H, ADA diet. (6) Elevated troponin Current Visit: Yes Status: Acute Base Code: R79.89 - OTHER SPECIFIED ABNORMAL FINDINGS OF BLOOD CHEMISTRY Comment: 10/04/19 -no c/o CP, continue cardiac monitoring 10/03/19 -trop 0.025-->0.016-->0.020, likely r/t RFTs -NO EKG changes -continue cardiac monitoring 10/02/19: - Likely 2/2 to kidney dsfx and chronic a fib. - Indeterminate range 0.025. - No ECG changes. - Keep on monitoring and evaluation advisor. (7) Hypothyroid Current Visit: Yes Status: Acute Base Code: E03.9 - HYPOTHYROIDISM, UNSPECIFIED Comment: 10/04/19: - Resume Levothyroxine 50mcg daily. (8) Full code status Current Visit: No Status: Acute Base Code: Z78.9 - OTHER SPECIFIED HEALTH STATUS Comment: 10/04/19 - Full code this admission (9) DVT prophylaxis Current Visit: No Status: Acute Base Code: Z29.9 - ENCOUNTER FOR PROPHYLACTIC MEASURES, UNSPECIFIED Comment: 10/04/19 -Hgb stab at 7.6, restarting coumadin pharmacy to dose, lovenox 100mg daily until theraputic 10/03/19 -INR 3.1-->1.6 but Hgb 5.1 this AM -pt transfusing 2 units PRBC today 10/02/19 - Hold prophylaxis. INR 3.1 - Resume anticoagulation with resolution of anemia. Results - Labs Result Diagrams: 10/04/19 06:20 10/04/19 06:20 Labs Last 24 Hours: Laboratory Results - last 24 hr 10/03/19 10/03/19 10/04/19 13:20 19:29 05:00 WBC 6.3 RBC 2.29 L Hgb 7.1 L Hct 24.3 L MCV 106.1 H MCH 31.0 MCHC 29.2 L RDW 23.8 H Plt Count 219 MPV 10.3 Neutrophils % 79.0 Band Neutrophils % 1.0 Eosinophils % Not Reportable Basophils % Not Reportable Absolute Neutrophils Not Reportable Lymphocytes 13.0 L Monocytes 5.0 Nucleated RBCs Polychromasia 1+ Anisocytosis 3+ Tear Drop Cells 1+ Eosinophil Count 2.0 Sodium Potassium Chloride Carbon Dioxide Anion Gap BUN Creatinine Estimated GFR Random Glucose Calcium Total Bilirubin AST ALT Alkaline Phosphatase Total Protein Albumin Globulin Albumin/Globulin Ratio Crossmatch Yes Yes 10/04/19 10/04/19 10/04/19 05:00 06:20 06:20 WBC 7.3 RBC 2.40 L Hgb 7.6 L Hct 25.4 L MCV 105.8 H MCH 31.6 MCHC 29.9 L RDW 25.2 H Plt Count 239 MPV 10.8 H Neutrophils % 81.0 H Band Neutrophils % 3.0 Eosinophils % Not Reportable Basophils % Not Reportable Absolute Neutrophils Not Reportable Lymphocytes 13.0 L Monocytes 2.0 Nucleated RBCs 1.0 Polychromasia 1+ Anisocytosis 3+ Tear Drop Cells 1+ Eosinophil Count 1.0 Sodium 138 Potassium 4.2 Chloride 100 Carbon Dioxide 23.0 Anion Gap 15.0 BUN 50 H Creatinine 1.6 H Estimated GFR 33 Random Glucose 255 H Calcium 9.2 Total Bilirubin 1.80 H AST 20 ALT 14 Alkaline Phosphatase 86 Total Protein 6.7 Albumin 4.3 Globulin 2.4 Albumin/Globulin Ratio 1.8 Crossmatch Yes DVT/PE Assessment - Risk for VTE Risk for VTE: No Risk Level: High Risk Assessment Date: 10/02/19 Risk Assessment Time: 11:43 VTE Orders Placed or Will Be Placed: No VTE Reason for No Prophylaxis: Contraindicated (Low Hgb) - Active Medicaitons Current Medications: Current Medications Acetaminophen (Tylenol 325mg) 650 mg PO Q6H PRN PRN Reason: PAIN - MILD(1-4)/FEVER Last Admin: 10/04/19 06:14 Dose: 650 mg Documented by: Allopurinol (Zyloprim) 100 mg PO DAILY [facility] Last Admin: 10/04/19 10:04 Dose: 100 mg Documented by: Amlodipine Besylate (Norvasc) 10 mg PO DAILY [facility] Last Admin: 10/04/19 10:03 Dose: 10 mg Documented by: Atorvastatin Calcium (Lipitor) 40 mg PO DAILY [facility] Last Admin: 10/04/19 10:03 Dose: 40 mg Documented by: Carvedilol (Coreg) 25 mg PO BID [facility] Last Admin: 10/04/19 10:04 Dose: 25 mg Documented by: Clopidogrel Bisulfate (Plavix) 75 mg PO DAILY [facility] Last Admin: 10/04/19 10:02 Dose: 75 mg Documented by: Enoxaparin Sodium (Lovenox) 100 mg SQ DAILY [facility] Last Admin: 10/04/19 10:01 Dose: 100 mg Documented by: Furosemide (Lasix Iv) 20 mg IV ONCE PRN PRN Reason: BLOOD INFUSION COMPLETED Gabapentin (Neurontin) 300 mg PO QID [facility] Last Admin: 10/04/19 10:02 Dose: 300 mg Documented by: Levothyroxine Sodium (Synthroid) 50 mcg PO DAILYTHY [facility] Last Admin: 10/04/19 06:14 Dose: 50 mcg Documented by: Losartan Potassium (Losartan Potassium) 100 mg PO DAILY [facility] Last Admin: 10/04/19 10:02 Dose: 100 mg Documented by: Non-Formulary Medication (Insulin Degludec [Tresiba Flextouch U-100]) 36 unit SQ QHS [facility] Last Admin: 10/03/19 22:27 Dose: 36 unit Documented by: Warfarin Sodium (Coumadin) 1.5 mg PO DAILY [facility] AMI Plan - Labs Result Diagrams: 10/04/19 06:20 10/04/19 06:20
[2019-10-04] MEDS ORDERED: CYANOCOBALAMIN 1000 MCG/ML VIAL IM ONE (11:24)
--- NOTE | 2019-10-04 11:30 | Rehab Evaluation ---
Patient Information - Patient Information Diagnosis: severe anemia with CHF Ordered Treatment: OT Evaluate and Treat Status: Initial Evaluation Surgery: No Past Medical/Surgical Hx: PAST MEDICAL/SURGICAL HISTORY Past Surgical History appendectomy cholecystectomy knee replacement shoulder pacemaker stents, x2 stents previous to the x3 stents in January 2019 PMH - Respiratory Hx Respiratory Disorders No PMH - Cardiovascular Hx Cardiovascular Disorders Yes Hx Cardiac Catheterization Yes Hx Hypertension Yes Hx Pacemaker/Defibrillator Yes Comment: high cholesterol PMH - Neuro Hx Neurological Disorders Yes Hx Neuropathy Yes PMH - GI Hx Gastrointestinal Disorders No PMH - Hx Genitourinary Disorders No Patient No PMH - Endocrine Hx Endocrine Disorders Yes Hx Diabetes Yes Hx Thyroid Disease Yes PMH - Musculoskeletal Hx Musculoskeletal Disorders Yes Hx Gout Yes PMH - Psych Hx Psychiatric Problems No PMH - Hematology/Oncology Hx Hematology/Oncology Yes Disorders Hx Anemia Yes Hx Cancer Yes: skin basal cell Hx Chemotherapy No Hx Radiation Therapy No Premorbid Status: Detail (Pt lives with spouse in a 2 story house with a basement. The laundry and one shower are located in the basement. She has 3 steps and 1 railing at the entrance. On the main level she has a tub/shower combination, no seat or grab bars, she typically stands to shower. She has a standard height toilet, no grab bars. She reports she is responsible for meal prep and laundry and her spouse is responsible for yard work and using the vacuum. She has a 2 wheeled walker and straight cane but typically ambulates without any assistive device.) Social History: Detail (Supportive spouse.) Precautions: Frankewing, Fall, Other (anemia) - Time With Patient Total Time Spent With Patient (Min): 25 Treatment Procedures: Detail (OT eval low complexity) Subjective Information - Subjective Information Per Patient, Other (Spouse) Objective Data - Pain Pain Present: No (Pt reports no pain) - Mental Status Patient Orientation: Oriented x3 - Visual Perception Appears within normal limits for therapeutic activities - ROM Not within normal limits (Chris shoulder flexion limited to approx. 120 degrees, remaining chris UE AROM WNL.) - Strength/Tone Not within normal limits (Right shoulder flexion 4-5/, remaining chris UE strength 4/5 throughout.) - Coordination Appears within normal limits for therapeutic activities - Bed Mobility Independent (Ind with supine to sit and sit to supine.) - Transfers Independent (Ind with sit to stand from EOB and toilet heights.) - Balance Balance Sitting: Good Balance Standing: Fair - Sensation Intact - Gait Detail (Pt ambulating in room and short distance in hallway with 2 wheeled w alker and CG assist. Pt was very fatigued after ambulation.) - ADL's/IADL's Detail (Pt completing toileting with supervision. She reports she was able to complete a partial sponge bath with set up earlier today. Pt reports no concern about her Ind with ADLs/IADLs at this time although she does have decreased activity tolerance.) Therapy Assessment - Therapy Assessment Detail (Pt presents with decreased endurance needed for safe and Ind ADLs/IADLs.) Problem List - Problem List Occupational Therapy Problem List: Detail (1. Impaired endurance needed for safe and Ind ADLs/IADLs.) Goals - Goals Occupational Therapy Goals: 1. Pt will demonstrate improved endurance to allow safe and Ind self cares. Prognosis - Prognosis Good Plan - Plan Occupational Therapy Plan: OT will follow 2-3 times per week as medical status allows to address overall endurance and ADLs. Thank you for this referral.
--- NOTE | 2019-10-04 11:48 | Rehab Evaluation ---
Patient Information - Patient Information Diagnosis: severe anemia with CHF Ordered Treatment: PT Evaluate and Treat Status: Initial Evaluation Surgery: No Past Medical/Surgical Hx: PAST MEDICAL/SURGICAL HISTORY Past Surgical History appendectomy cholecystectomy knee replacement shoulder pacemaker stents, x2 stents previous to the x3 stents in January 2019 PMH - Respiratory Hx Respiratory Disorders No PMH - Cardiovascular Hx Cardiovascular Disorders Yes Hx Cardiac Catheterization Yes Hx Hypertension Yes Hx Pacemaker/Defibrillator Yes Comment: high cholesterol PMH - Neuro Hx Neurological Disorders Yes Hx Neuropathy Yes PMH - GI Hx Gastrointestinal Disorders No PMH - Hx Genitourinary Disorders No Patient No PMH - Endocrine Hx Endocrine Disorders Yes Hx Diabetes Yes Hx Thyroid Disease Yes PMH - Musculoskeletal Hx Musculoskeletal Disorders Yes Hx Gout Yes PMH - Psych Hx Psychiatric Problems No PMH - Hematology/Oncology Hx Hematology/Oncology Yes Disorders Hx Anemia Yes Hx Cancer Yes: skin basal cell Hx Chemotherapy No Hx Radiation Therapy No Premorbid Status: Detail (Pt lives with spouse in a 2 story house with a basement. The laundry and one shower are located in the basement. She has 3 steps and 1 railing at the entrance. On the main level she has a tub/shower combination, no seat or grab bars, she typically stands to shower. She has a standard height toilet, no grab bars. She reports she is responsible for meal prep and laundry and her spouse is responsible for yard work and using the vacuum. She has a 2 wheeled walker and straight cane but typically ambulates without any assistive device.) Social History: Detail (Supportive spouse.) Precautions: Nenzel, Fall, Other (anemia) - Time With Patient Total Time Spent With Patient (Min): 25 Treatment Procedures: Detail (Initial Evaluation, low complexity) Subjective Information - Subjective Information Per Patient (The patient had no complaints of pain.) Objective Data - Mental Status Patient Orientation: Oriented x3 - Visual Perception Appears within normal limits for therapeutic activities - ROM Within normal limits (The patient's LE AROM is WNL.) - Strength/Tone Not within normal limits (The patient's LE strength is generally 4+ to 5/5 except for hip flexors bilaterally which were 4/5.) - Bed Mobility Independent (The patient was independent with supine to and from sit transfer.) - Transfers Independent (The patient was independent with sit to and from stand transfer and toilet transfer.) - Balance Balance Sitting: Good Balance Standing: Fair (The patient's balance was not formally tested using an objective balance test however pt. was able to stand without support . The pt. did exhibit unsteadiness when ambulating without assistive device.) - Gait Detail (The patient ambulated with front wheeled walker with supervision for safety a distance of 46 feet x 1. The patient ambulated without device 7 feet x 2 with supervision/ CG due to unsteadiness. The patient's gait pattern was characterized by occasional stagger step and frequent touching of surfaces to steady herself. The patient was fatigued after treatment and returned to bed and was left with call light within reach.) Therapy Assessment - Therapy Assessment Detail (The patient was independent with bed mobility and transfers and required supervision for safety with ambulation. Due to unsteady gait pattern without device use of walker is recommended when ambulating. The patient's LE is normal except for bilateral hip flexor weakness.The patient exhibits decreased endurance for physical activity. Patient is a good PT candidate as an inpt. to increase ambulation endurance and progress ambulation to without device. Due to independence with mobility unsure at this point is patient will require ongoing PT services once discharged from [facility].) Problem List - Problem List Physical Therapy Problem List: Detail (1) Bilateral hip weakness 2) Decreased ability to complete prolonged physical activity 3) Decreased balance when ambulating) Occupational Therapy Problem List: Detail (1. Impaired endurance needed for safe and Ind ADLs/IADLs.) Goals - Goals Physical Therapy Goals: 1) The patient will ambulate with appropriate assistive device household distances independently with minimal to no complaints of fatigue. 2) The patient will tolerate 15 to 20 minutes of physical activity with one rest period. 3) Assess the patient's balance using objective balance test. Occupational Therapy Goals: 1. Pt will demonstrate improved endurance to allow safe and Ind self cares. Plan - Plan Physical Therapy Plan: PT one time a day M-F for ambulation,balance exercises/assessment and endurance exercises. Occupational Therapy Plan: OT will follow 2-3 times per week as medical status allows to address overall endurance and ADLs. Thank you for this referral.
[2019-10-04] MEDS: FOLIC ACID 1 MG TABLET PO SCH (12:05)
[2019-10-04] MEDS: NOVOLOG FLEXPEN (INSULIN ASPART) 100 UNITS/ML SQ SCH ×2 (12:15→18:27)
--- NOTE | 2019-10-04 15:38 | CT SCAN REPORT ---
EXAMINATION: CT Abdomen and Pelvis without Contrast EXAM DATE: 10/04/2019 3:18 PM TECHNIQUE: Spiral CT images were obtained from the lung bases to the ischial tuberosities without int ravenous contrast. Coronal and sagittal 2-D reconstructions were made from source images. INDICATION: anemia x2 days COMPARISON: 01/22/2015. FINDINGS: Evaluation of solid organs is degraded due to lack of intravenous contrast. Abdomen: The spleen is mildly enlarged. Previous cholecystectomy. The liver, pancreas, adrenals, and kidneys a re normal. No free fluid or free air. Suboptimal evaluation of bowel due to nondistention and lack o f oral contrast. No bowel dilation. There are small bilateral pleural effusions and bibasilar atelectasis or infiltrate. Prior spinal fus ion again noted. Pelvis: Prior hysterectomy. No free fluid or free air. No inflammatory change. No lymphadenopathy. IMPRESSION: 1. Mild splenomegaly. 2. Bilateral pleural effusions and bibasilar atelectasis or infiltrate. Dictated by: Isaac Ortez MD on 10/04/2019 3:29 PM. .
[2019-10-04] MEDS ORDERED: FUROSEMIDE IV 20MG/2ML VIAL IV PRN (17:00)
[2019-10-04] MEDS: INSULIN DEGLUDEC 36 UNIT SQ SCH (21:29)
[2019-10-05] MEDS: ACETAMINOPHEN 325 MG TAB PO PRN (02:29)
[2019-10-05] MEDS: LEVOTHYROXINE SODIUM 50 MCG TABLET PO SCH (06:06)
[2019-10-05 06:45] LABS: HEMATOCRIT 29.5 % (35.0-47.0); MEAN CORPUSCULAR HEMOGLOBIN 30.8 pg (27-33); MEAN CORPUSCULAR HGB CONC 30.5 g/dl (32-36); MEAN PLATELET VOLUME 10.7 fl (7.4-10.4); PLATELET COUNT 199 K/uL (130-400); RED BLOOD COUNT 2.92 M/uL (3.80-5.40); RED CELL DISTRIBUTION WIDTH 23.8 % (11.5-14.5); WHITE BLOOD COUNT W/O DIFF 6.4 K/uL (4.2-12.2)
[2019-10-05 06:57] LABS: ANISOCYTOSIS 3+; POLYCHROMASIA 1+
[2019-10-05 07:05] LABS: ALB/GLOB RATIO 1.7 (1.1-1.8); ALBUMIN 4.1 g/dL (4.0-5.0); BILIRUBIN,TOTAL 2.1 mg/dL (0.2-1.0); CREATININE 1.4 mg/dL (0.5-0.9); TOTAL PROTEIN 6.5 g/dL (6.6-8.7)
[2019-10-05] MEDS: NOVOLOG FLEXPEN (INSULIN ASPART) 100 UNITS/ML SQ SCH (08:36)
[2019-10-05] MEDS: GABAPENTIN 300 MG CAPSULE PO SCH (09:25)
[2019-10-05] MEDS: AMLODIPINE BESYLATE 5MG TAB PO SCH (09:27)
[2019-10-05] MEDS: CLOPIDOGREL 75MG TABLET PO SCH (09:27)
[2019-10-05] MEDS: ATORVASTATIN 20 MG TABLET PO SCH (09:27)
[2019-10-05] MEDS: ENOXAPARIN 100 MG/ML SYR SQ SCH (09:27)
[2019-10-05] MEDS: CARVEDILOL 12.5 MG TABLET PO SCH (09:27)
[2019-10-05] MEDS: FOLIC ACID 1 MG TABLET PO SCH (09:27)
[2019-10-05] MEDS: ALLOPURINOL 100 MG TAB PO SCH (09:27)
[2019-10-05] MEDS: LOSARTAN POTASSIUM 100 MG TABLET PO SCH (09:28)
--- NOTE | 2019-10-05 09:51 | Discharge Summary ---
Providers Discharge Summary Date: 10/05/19 Date of admission: 10/02/19 12:18 Expected Date of Discharge: 10/05/19 Attending physician: EVE CRUZ Primary care physician: TIANA JOE M.D. Physical Exam - Vital Signs Vital Signs: Vital Signs - Last 24 Hrs Temp Pulse Pulse Resp BP Pulse Ox 10/05/19 08:00 98.0 F 61 16 129/54 93 L 10/05/19 04:00 98.2 F 66 18 148/98 97 10/04/19 23:58 98.5 F 65 18 145/53 92 L 10/04/19 20:47 62 10/04/19 20:00 98.2 F 66 20 139/82 95 - General General Appearance: Alert, Oriented x3, Cooperative, No acute distress Limitations: No limitations - Head Head exam: Atraumatic, Normocephalic, Normal inspection - Eye Eye exam: negative: Normal appearance, Conjunctival injection - ENT ENT exam: Normal exam, Mucous membranes dry Throat exam: Normal inspection. negative: Tonsillar erythema, Tonsillar exudate - Neck Neck exam: Normal inspection, Full ROM. negative: Tenderness - Respiratory Respiratory exam: Normal lung sounds bilaterally. negative: Respiratory distress, Wheezes - Cardiovascular Cardiovascular Exam: Regular rate, Diastolic murmur, Irregular rhythm (chronic afib). negative: Normal heart sounds (murmur) Peripheral Pulses: 2+: Radial (R), Radial (L), Dorsalis Pedis (R), Dorsalis Pedis (L) - GI/Abdominal GI/Abdominal exam: Soft, Normal bowel sounds. negative: Tenderness - Rectal Rectal exam: Deferred, Heme (-) stool - exam: Deferred - Extremities Extremities exam: Normal inspection, Full ROM, Normal capillary refill, Pedal edema (+2 hui, up to knee left and mid calf right). negative: Tenderness - Back Back exam: Reports: Normal inspection - Neurological Neurological exam: Alert, Normal gait. negative: Abnormal gait, Motor sensory deficit - Skin Skin exam: Abrasion (hui lower extremities (pt reports chronic itching)), Dry. negative: Intact Type of lesion: abrasion Distribution of rash: Generalized Description of rash: Urticarial Hospitalization - Hospitalization Admission Diagnosis: 1. Severe Anemia with CHF - Problem List/Discharge Diagnosis (1) Anemia Current Visit: Yes Status: Chronic Discharge Diagnosis: Anemia type: other cause Base Code: D64.9 - ANEMIA, UNSPECIFIED Comment: 10/05/19 -Hgb 5.4-->5.1-->7.1--7.6-->9 after 4 units PRBC -CT abd/pelvis neg for bleeding changes -repeat CBC 1-2 days before PCP f/u in 1 week 10/04/19 -Hgb 5.4-->5.1-->7.1--7.6 after 2 units PRBC -pt maintained hgb through the night and with the addition of plavix (pt had STENT placed January 2019) -repeat 2 units PRBC and adding lovenox SQ 1mg/kg and pharmacy returning to coumadin -pt daughter is req abd CT r/t anema (pt does not have epigastric tenderness, no chhaya blood or black tarry stools, no bloody emesis noted) but dramatic Hgb change in 2 weeks 10/03/19 -Hgb 8.4 (09/19/2019)--5.4-->5.1 DDx coumadin use, blood loss, poor RBC production -cont to hold coumadin and plavix, blood was not transfused during the night r/t antibodies but pt denies any h/o previous transfusions -O Neg transfusion starting this AM, pt denies any questions about the blood products -RFTs decreased but will give lasix between units and recheck this HS -recheck CBC after second unit, will eval in the AM for repeat units - 10/02/19: - Hgb 8.4 --> 5.4 since 09/19.DDx: blood loss, coumadin use, chronic diseasse. - Fecal occult blood negative, no other active source of bleed identified. - Hold anticogulation with Coumadin and Plavix. - Due to hx of CHF Hgb should be maintained > 8. - Type/Screen 2 units PRBC now and monitor any indication of volume overload. Diuresis with Lasix IV. (2) Renal insufficiency Current Visit: Yes Status: Acute Base Code: N28.9 - DISORDER OF KIDNEY AND URETER, UNSPECIFIED Comment: 10/05/19 -BUN 37-->47-->50-->48 -Cr 1.6-->1.7-->1.6-->1.4 (baseline 1.3) -repeat Lasix 20mg IVP and d/c, repeat BMP before PCP f/u 10/04/19 -BUN 37-->47-->50 -Cr 1.6-->1.7-->1.6 continue lasix, repeat BMP with CBC after 2 more units PRBC -pt baseline Cr 1.3, will continue to monitor, avoid nephrotoxins 10/03/19 -BUN 37-->47 -Cr 1.6-->1.7 -DDx fluid overload, s/e metformin, hypovolemia -Transfuse 2 unit PRBC, lasix after and repeat labs 10/02/19: - Acute on chronic 2/2 to volume loss. Prevous lab shows stage 3 CKD. - Bun/Cr 37/1.6, Egfr 33 - Monitor with daily labs. Avoid nephrotoxins. (3) CHF (congestive heart failure) Current Visit: No Status: Acute Discharge Diagnosis: Heart failure type: unspecified Heart failure chronicity: unspecified Qualified Code(s): I50.9 - Heart failure, unspecified Base Code: I50.9 - HEART FAILURE, UNSPECIFIED Comment: 10/05/19 -pt to continue home meds, telehealth for CHF -f/u PCP 1 week 10/04/19 -EF 55-60% ECHO, MV regurge, tricuspid regurge -pt weakness and fatigue improving but SOB remains - Lasix 20mg IVP this AM and repeat after 1st unit PRBC today -cont cardiac monitor technician 10/03/19 -BNP 2020, unknown how consistent pt has been in Lasix at home -Past ECHO 03/2019, no known EF, repeat ECHO today -Continue BB, JOSE ALFREDO, and statin -Fluid restriction -Lasix after blood transfusion -continue cardiac monitoring 10/02/19 - Weakness, fatigue. Denies SOB, chest pain or edema. - BNP 2020 on admission - CXR: interstitial edema, no symptoms of infection present - IV Lasix 40mg daily. Daily weights and I/Os, fluid restriction to 1.5 liters daily. - Fluid restrictions while admitted. - Resume BB, JOSE ALFREDO, statin meds. - desk monitor ordered. - 2D echo ordered. (4) Chronic atrial fibrillation Current Visit: Yes Status: Acute Base Code: I48.20 - CHRONIC ATRIAL FIBRILLATION, UNSPECIFIED Comment: 10/05/19 -continue lovenox until INR theraputic, pharmacy to dose 10/04/19 -returning to anticoagulation with lovenox and pharmacy dosing coumadin as Hgb has stabilized 10/03/19: - ECG: - desk monitor: - Rate controlled on Coreg 25mg BID. Anticoagulation with Coumadin 3 mg daily but held r/t bleeding risk and anemia (5) Diabetes mellitus Current Visit: Yes Status: Acute Base Code: E11.9 - TYPE 2 DIABETES MELLITUS WITHOUT COMPLICATIONS Comment: 10/05/19 -hold metformin until seen by PCP and RFTs repeated 10/04/19 -continue to hold metformin, monitor RFTs -ADA diet -adding low dose S/S coverage since stopping metformin 10/03/19 -holding metformin r/t worsening RFTs 10/02/19: - On Metformin 100mg BID, Tresiba 36 units QHS. - Patient will bring in Tresiba from home. - Accuchecks Q12H, ADA diet. (6) Elevated troponin Current Visit: Yes Status: Acute Base Code: R79.89 - OTHER SPECIFIED ABNORMAL FINDINGS OF BLOOD CHEMISTRY Comment: -no c/o CP, continue cardiac monitoring 10/03/19 -trop 0.025-->0.016-->0.020, likely r/t RFTs -NO EKG changes -continue cardiac monitoring 10/02/19: - Likely 2/2 to kidney dsfx and chronic a fib. - Indeterminate range 0.025. - No ECG changes. - Keep on cardiac monitor technician. (7) Hypothyroid Current Visit: Yes Status: Acute Base Code: E03.9 - HYPOTHYROIDISM, UNSPECIFIED Comment: 10/05/19: - Resume Levothyroxine 50mcg daily. (8) Full code status Current Visit: No Status: Acute Base Code: Z78.9 - OTHER SPECIFIED HEALTH STATUS Comment: 10/05/19 - Full code this admission (9) DVT prophylaxis Current Visit: No Status: Acute Base Code: Z29.9 - ENCOUNTER FOR PROPHYLACTIC MEASURES, UNSPECIFIED Comment: -Hgb stab at 7.6, restarting coumadin pharmacy to dose, lovenox 100mg daily until theraputic 10/03/19 -INR 3.1-->1.6 but Hgb 5.1 this AM -pt transfusing 2 units PRBC today 10/02/19 - Hold prophylaxis. INR 3.1 - Resume anticoagulation with resolution of anemia. - Hospitalization Course Disposition: Home Health Service Hospital Course: Mrs Sam is a pleasant 83 y/o female with medical history of chronic atrial fibrillation, chronic congestive heart failure here presenting with complaint of fatigue and weakness. She says that she has had worsening symptoms over the past 2-3 days with shortness of breath but denies chest pain or palpitations. She was recently admitted to [facility] for exacerbation of heart failure and was diuresed and discharged home after symptoms resolved. At that time her Hgb was 8.4 on 09/19/19. She denies dark stools, or any other noticeable blood loss. She is on anticoagulation with Coumadin and is also on Plavix. Her INR on 09/19 was 2.2 and today is 3.1. She says that about a week ago she had her INR checked and it was 6. She says her primary doctor held her Coumadin for 3 days then she resumed it. ED course: Positive labs: Hgb 5.4, Trop 0.025, pro-BNP 2020 CXR: No acute process, Pacer in place. Type and Screen 2 units PRBC ordered. On examination this afternoon the patient is weak but is able to converse. She is no cute distress. She will be admitted for transfusion of PRBC and CHF. PCP: Dr. Joe Procedures: Imaging and X-Rays 10/02/19 10:18 CHEST 2 VIEWS [RAD] Stat 10/04/19 11:13 ABDOMEN/PELVIS WO CONTRAST [CT] Stat Cardiology Procedures 10/02/19 10:13 [employer]itness [employer] Manager NOW EKG NOW 10/02/19 12:42 Fitness Centre Manager .Continuous EKG QDX2@0600 10/02/19 13:14 Echo W/CF & Cardiac Doppler NOW Abnormal Labs: Abnormal Lab Results 10/02/19 10/02/19 10/02/19 Range/Units 10:13 10:13 10:13 RBC 1.63 L (3.80-5.40) M/uL Hgb 5.4 L* (11.6-16.0) gm/dl Hct 18.3 L (35.0-47.0) % MCV 112.3 H (81-97) fl MCH 33.1 H (27-33) pg MCHC 29.5 L (32-36) g/dl RDW 20.1 H (11.5-14.5) % MPV (7.4-10.4) fl Neutrophils % 86.0 H (47-80) % Lymphocytes 8.0 L (16-45) % PT 30.4 H (9.5-12.1) SECONDS Potassium 4.6 H (3.4-4.5) mmol/L Carbon Dioxide 20.0 L (22-29) mmol/L Anion Gap 18.0 H (7-16) BUN 37 H (8-23) mg/dL Creatinine 1.6 H (0.5-0.9) mg/dL POC Glucose (70-110) mg/dL Random Glucose 136 H (74-109) mg/dL Ferritin (13-150) ng/mL Total Bilirubin 2.20 H (0.2-1.0) mg/dL Troponin T 0.025 H (0-0.010) ng/mL NT-Pro-B Natriuret Pep 2021.00 H (<450) pg/mL Total Protein (6.6-8.7) g/dL Albumin/Globulin Ratio 1.9 H (1.1-1.8) Antibody Screen (NEGATIVE) 10/02/19 10/02/19 10/03/19 Range/Units 10:13 16:07 00:00 RBC (3.80-5.40) M/uL Hgb (11.6-16.0) gm/dl Hct (35.0-47.0) % MCV (81-97) fl MCH (27-33) pg MCHC (32-36) g/dl RDW (11.5-14.5) % MPV (7.4-10.4) fl Neutrophils % (47-80) % Lymphocytes (16-45) % PT (9.5-12.1) SECONDS Potassium (3.4-4.5) mmol/L Carbon Dioxide (22-29) mmol/L Anion Gap (7-16) BUN (8-23) mg/dL Creatinine (0.5-0.9) mg/dL POC Glucose (70-110) mg/dL Random Glucose (74-109) mg/dL Ferritin (13-150) ng/mL Total Bilirubin (0.2-1.0) mg/dL Troponin T 0.016 H 0.020 H (0-0.010) ng/mL NT-Pro-B Natriuret Pep (<450) pg/mL Total Protein (6.6-8.7) g/dL Albumin/Globulin Ratio (1.1-1.8) Antibody Screen Positive H (NEGATIVE) 10/03/19 10/03/19 10/03/19 Range/Units 06:00 06:10 06:10 RBC 1.52 L (3.80-5.40) M/uL Hgb 5.1 L* (11.6-16.0) gm/dl Hct 17.7 L* (35.0-47.0) % MCV 116.4 H (81-97) fl MCH 33.5 H (27-33) pg MCHC 28.8 L (32-36) g/dl RDW 21.1 H (11.5-14.5) % MPV 10.7 H (7.4-10.4) fl Neutrophils % (47-80) % Lymphocytes (16-45) % PT 16.5 H (9.5-12.1) SECONDS Potassium (3.4-4.5) mmol/L Carbon Dioxide (22-29) mmol/L Anion Gap (7-16) BUN (8-23) mg/dL Creatinine (0.5-0.9) mg/dL POC Glucose (70-110) mg/dL Random Glucose (74-109) mg/dL Ferritin 657.5 H (13-150) ng/mL Total Bilirubin (0.2-1.0) mg/dL Troponin T (0-0.010) ng/mL NT-Pro-B Natriuret Pep (<450) pg/mL Total Protein (6.6-8.7) g/dL Albumin/Globulin Ratio (1.1-1.8) Antibody Screen (NEGATIVE) 10/03/19 10/03/19 10/04/19 Range/Units 06:10 19:29 06:20 RBC 2.29 L 2.40 L (3.80-5.40) M/uL Hgb 7.1 L 7.6 L (11.6-16.0) gm/dl Hct 24.3 L 25.4 L (35.0-47.0) % MCV 106.1 H 105.8 H (81-97) fl MCH (27-33) pg MCHC 29.2 L 29.9 L (32-36) g/dl RDW 23.8 H 25.2 H (11.5-14.5) % MPV 10.8 H (7.4-10.4) fl Neutrophils % 81.0 H (47-80) % Lymphocytes 13.0 L 13.0 L (16-45) % PT (9.5-12.1) SECONDS Potassium (3.4-4.5) mmol/L Carbon Dioxide (22-29) mmol/L Anion Gap (7-16) BUN 47 H (8-23) mg/dL Creatinine 1.7 H (0.5-0.9) mg/dL POC Glucose (70-110) mg/dL Random Glucose (74-109) mg/dL Ferritin (13-150) ng/mL Total Bilirubin (0.2-1.0) mg/dL Troponin T (0-0.010) ng/mL NT-Pro-B Natriuret Pep (<450) pg/mL Total Protein (6.6-8.7) g/dL Albumin/Globulin Ratio (1.1-1.8) Antibody Screen (NEGATIVE) 10/04/19 10/04/19 10/04/19 Range/Units 06:20 11:34 20:21 RBC (3.80-5.40) M/uL Hgb (11.6-16.0) gm/dl Hct (35.0-47.0) % MCV (81-97) fl MCH (27-33) pg MCHC (32-36) g/dl RDW (11.5-14.5) % MPV (7.4-10.4) fl Neutrophils % (47-80) % Lymphocytes (16-45) % PT (9.5-12.1) SECONDS Potassium (3.4-4.5) mmol/L Carbon Dioxide (22-29) mmol/L Anion Gap (7-16) BUN 50 H (8-23) mg/dL Creatinine 1.6 H (0.5-0.9) mg/dL POC Glucose 319 H 323 H (70-110) mg/dL Random Glucose 255 H (74-109) mg/dL Ferritin (13-150) ng/mL Total Bilirubin 1.80 H (0.2-1.0) mg/dL Troponin T (0-0.010) ng/mL NT-Pro-B Natriuret Pep (<450) pg/mL Total Protein (6.6-8.7) g/dL Albumin/Globulin Ratio (1.1-1.8) Antibody Screen (NEGATIVE) 10/04/19 10/05/19 10/05/19 Range/Units 21:30 06:28 06:28 RBC 2.92 L (3.80-5.40) M/uL Hgb 9.0 L (11.6-16.0) gm/dl Hct 29.5 L (35.0-47.0) % MCV 101.0 H (81-97) fl MCH (27-33) pg MCHC 30.5 L (32-36) g/dl RDW 23.8 H (11.5-14.5) % MPV 10.7 H (7.4-10.4) fl Neutrophils % (47-80) % Lymphocytes 14.0 L (16-45) % PT (9.5-12.1) SECONDS Potassium (3.4-4.5) mmol/L Carbon Dioxide (22-29) mmol/L Anion Gap (7-16) BUN 48 H (8-23) mg/dL Creatinine 1.4 H (0.5-0.9) mg/dL POC Glucose 295 H (70-110) mg/dL Random Glucose 180 H (74-109) mg/dL Ferritin (13-150) ng/mL Total Bilirubin 2.10 H (0.2-1.0) mg/dL Troponin T (0-0.010) ng/mL NT-Pro-B Natriuret Pep (<450) pg/mL Total Protein 6.5 L (6.6-8.7) g/dL Albumin/Globulin Ratio (1.1-1.8) Antibody Screen (NEGATIVE) Condition at Discharge: (2) Stable Discharge Medications - Discharge Medications Prescriptions: Warfarin Sodium [Coumadin] 1.5 mg PO DAILY #13 tablet Enoxaparin Sodium [Lovenox] 100 mg SQ DAILY #7 syr Home Medications: Ambulatory Orders Allopurinol 100 mg PO DAILY 01/22/15 [Last Taken 1 Day Ago ~10/01/19] Gabapentin 300 mg PO QID 01/22/15 [Last Taken 1 Day Ago ~10/01/19] Levothyroxine Sodium [Synthroid] 50 mcg PO DAILY 01/22/15 [Last Taken 1 Day Ago ~10/01/19] Amlodipine Besylate [Norvasc] 10 mg PO DAILY 09/18/19 [Last Taken 1 Day Ago ~10/01/19] Atorvastatin Calcium [Lipitor] 40 mg PO DAILY 09/18/19 [Last Taken 1 Day Ago ~10/01/19] Cholecalciferol (Vitamin D3) [Vitamin D3] 25 mcg PO DAILY 09/18/19 [Last Taken 1 Day Ago ~10/01/19] Clopidogrel Bisulfate [Clopidogrel] 75 mg PO DAILY 09/18/19 [Last Taken 1 Day Ago ~10/01/19] Insulin Degludec [Tresiba Flextouch U-100] 36 unit SQ QHS 09/18/19 [Last Taken 1 Day Ago ~10/01/19] Irbesartan [Avapro] 300 mg PO DAILY 09/18/19 [Last Taken 1 Day Ago ~10/01/19] Carvedilol [Coreg] 25 mg PO BID tablet 09/19/19 [Last Taken 1 Day Ago ~10/01/19] Furosemide [Lasix] 20 tab PO DAILY 30 Days #30 09/19/19 [Last Taken 1 Day Ago ~10/01/19] Acetaminophen [Tylenol 325Mg] 650 mg PO Q6H PRN tablet 10/05/19 [Last Taken Unknown] Clopidogrel Bisulfate [Plavix] 75 mg PO DAILY tab 10/05/19 [Last Taken Unknown] Enoxaparin Sodium [Lovenox] 100 mg SQ DAILY #7 syr 10/05/19 [Last Taken Unknown] Warfarin Sodium [Coumadin] 1.5 mg PO DAILY #13 tablet 10/05/19 [Last Taken Unknown] Discharge Plan - Discharge Instructions Activity at Discharge: As Per Physical Therapy Diet at Discharge: Advance to Usual Diet Instructions: Anemia (DC) Additional Instructions: You have an appointment with Dr Joe Wednesday, Oct 10, 2:30pm Complete your labs 1-2 days before your appointment. If your symptoms return, please go to ER. Continue to work with [facility]. Thank you for choosing [facility]!! Quality Measures - Quality Measures Quality Measures: Atrial Fibrillation & Atrial Flutter: Chronic Anticoagulation Therapy, Advance Directives, Documentation of Current Medications in Medical Record, Elder Maltreatment Screen and Follow-Up Plan, Heart Failure, Screening for High Blood Pressure and F/U Documented - Current Medications Quality Measure: Measure #130: Documentation of Current Medications Documentation of Current Medications: <Current Medications Documented/Reviewed> [G8404] - Blood Pressure Screening Quality Measure: Screening for High Blood Pressure and Follow-Up Documented Does Patient Have Any of the Following: Active Dx of HTN Blood Pressure Classification: Normal BP Reading Systolic Measurement: 111 Diastolic Measurement: 61 Screening for High Blood Pressure: Patient Exclusion, Hx of HTN [G9744] - Atrial Fibrillation and Atrial Flutter Quality Measure: Atrial Fibrillation & Atrial Flutter: Chronic Anticoagulation Therapy Does Patient Have Any of the Following: Mitral Stenosis CHADS2 Risk Stratification: Age 75 or Greater, Hypertension, Diabetes Mellitus Risk Stratification Summary: One or more high risk factors OR more than one moderate risk factor exists. [G8972] Anticoagulation Therapy: <Oral anticoagulant Prescribed> [G8967] - Heart Failure (JOSE ALFREDO/ARB Therapy) Quality Measure: Heart Failure Left Ventricular Systolic Function: Unknown (EF 55-60%) JOSE ALFREDO Inhibitor or ARB Therapy for LVSD: Not Prescribed, Reason not Specified [4010F with 8P] - Heart Failure (Beta-bambi Therapy) Quality Measure: Heart Failure Left Ventricular Systolic Function: Unknown (EF 55) Beta-Bambi Therapy for LVEF < 40%: Not Eligible - Advance Directives Quality Measure: Measure #47: Care Plan Advance Directives Established: Yes Advance Directives Information Provided To Patient: Yes Advance Directives on File: No Living Will: Yes Power of Plasma Table Operator: Yes Advance Care Planning: <Care Plan/Decision Maker Not Decided; Discussed & Documented> [7394F] - Elder Abuse Suspicion Index Screening: Elder Abuse Suspicion Index Screening Rely on people for bathing, dressing, shopping, banking, etc: No Prevented from getting food, clothes, medication, etc: No Made to feel shamed or threatened by someone: No Forced to sign papers or use money against will: No Feel afraid, touched in ways not wanted or hurt physically: No Poor eye contact, withdrawn, malnourished, cuts or bruises: No Screening Result: Negative result EASI Reference Information: Arcadio RECINOS, Lisa C, Ciera D, [place].Development and validation of a tool to assist physicians identification of elder abuse: The Elder Abuse Suspicion Index (EASI ). Journal of Elder Abuse and Neglect, 2008; 20 (3): 276-300. - Elder Maltreatment Screen Quality Measures: Elder Maltreatment Screen and Follow-Up Plan Elder Maltreatment Screen: <Negative, No Follow-Up Plan Required> [G2541]
[2019-10-05] MEDS ORDERED: WARFARIN 1 MG TABLET PO SCH (10:00)
[2019-10-05] MEDS ORDERED: FUROSEMIDE IV 20MG/2ML VIAL IVP SCH (10:00)
== END 2019-10-05 12:30 | disposition home health service (06) | DRG 812 ==
LOC: ER 10:04 → MEDSURG 12:18
PROVIDERS: ADMIT Internal Medicine; ATTEND Internal Medicine
DX: D64.89 Other specified anemias (principal); I48.20 Chronic atrial fibrillation, unspecified; I50.9 Heart failure, unspecified; R53.1 Weakness; R79.89 Other specified abnormal findings of blood chemistry; I10 Essential (primary) hypertension; E78.00 Pure hypercholesterolemia, unspecified; G62.9 Polyneuropathy, unspecified; E11.9 Type 2 diabetes mellitus without complications; E03.9 Hypothyroidism, unspecified; Z95.0 Presence of cardiac pacemaker; Z95.5 Presence of coronary angioplasty implant and graft; Z85.828 Personal history of other malignant neoplasm of skin; Z79.01 Long term (current) use of anticoagulants; N28.9 Disorder of kidney and ureter, unspecified
CPT/HCPCS: 36416; 36430; 71046; 74176; 80048; 80053; 82607; 82728; 82948; 83550; 83880; 84484; 85027; 85610; 85730; 86850; 86900; 86901; 93005; 93010; 93306; 93356; 96372; 96374; 99223; 99233; 99239; 99285; J1650; J1940